=== PATIENT | male | born 1955 | race Caucasian/White ===

== ENCOUNTER 2017-09-22 14:30 | Observation (INO) | payer BC ==
[2017-09-22] MEDS ORDERED: LORazepam 2 MG/ML MDV IVPUSH ONE (15:51)
[2017-09-22] MEDS ORDERED: Sodium Chloride 0.9% 10 ML Syringe FLUSH PRN (15:51)
[2017-09-22] MEDS ORDERED: Ondansetron 4 MG/2 ML SDV IVPUSH ONE (15:51)
[2017-09-22] MEDS ORDERED: Sodium Chloride 0.9% 2,000 ML IV ONE (15:51)
--- NOTE | 2017-09-22 16:45 | EDM.PDOC ---
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 Patient states last night at approximately 2000 hrs. had a few bowel movements that were loose but with nothing abnormal. At approximately 2100 hrs he had copious amounts of watery diarrhea with no blood. He started vomiting thereafter and has persisted overnight. He's been unable to keep anything down. States he feels dehydrated. Has cramping to his lower legs. He denies recent sick contact although he has been at the [facility] for follow- up visit to discuss reversing his colostomy bag. Colon was removed in 2014 secondary to what the patient describes as a sick colon. He does have a history of C. difficile. States nothing recent has been diagnosed and has been on no antibiotics. He's had no fever, chest pain, shortness of breath, dysuria, or any additional complaints. He does complain of some mild dizziness with body position changes. No generalized body aches as well. - Related Data Allergies Allergy/AdvReac Type Severity Reaction Status Date / Time No Known Allergies Allergy Verified 09/22/17 14:48 Home Meds: Home Meds PHENobarbital [Phenobarbital] 97.2 mg PO BEDTIME 12/08/14 [History] Acetaminophen [Tylenol] 650 mg PO Q4H PRN 10/03/15 [History] Phenytoin 8 ml PO BID 12/12/15 [History] Entivyo. IV 09/22/17 [History] Past Medical History - Past Health History Medical/Surgical History: Denies Medical/Surgical History Gastrointestinal History: Reports: Bowel Obstruction, GERD, Hemorrhoids, Other ( See Below) Other Gastrointestinal History: ulcerative colitis, colectomy Musculoskeletal History: Reports: Arthritis Neurological History: Reports: Seizure Other Neuro History: last seizure in 1991 - Infectious Disease History Infectious Disease History: Reports: C-Difficile, Chicken Pox, Influenza, Measles, Mumps - Past Surgical History HEENT Surgical History: Reports: Other (See Below) GI Surgical History: Reports: Other (See Below) Social & Family History - Family History Family Medical History: Noncontributory Other Oncologic Family History: DM - mother. [place] - brother at age 39 - Tobacco Use Smoking Status *Q: Never Smoker Years of Tobacco use: 5 Used Tobacco, but Quit: Yes Month Tobacco Last Used: 1979 Second Hand Smoke Exposure: No - Caffeine Use Caffeine Use: Reports: Soda - Alcohol Use Days Per Week of Alcohol Use: 0 - Recreational Drug Use Recreational Drug Use: No Drug Use in Last 12 Months: No - Living Situation & Occupation Living situation: Reports: , with Spouse Occupation: Employed ED ROS GENERAL - Review of Systems Review Of Systems: ROS reveals no pertinent complaints other than HPI. ED EXAM, GI/ABD - Physical Exam Exam: See Below Exam Limited By: No Limitations General Appearance: Alert, WD/WN, Moderate Distress Ears: Hearing Grossly Normal Nose: Normal Inspection Throat/Mouth: Normal Voice, No Airway Compromise Head: Atraumatic, Normocephalic Neck: Normal Inspection, Supple, Non-Tender, Full Range of Motion Respiratory/Chest: No Respiratory Distress, Lungs Clear, Normal Breath Sounds Cardiovascular: Normal Peripheral Pulses, Regular Rate, Rhythm, No Murmur GI/Abdominal Exam: Soft, Non-Tender, No Organomegaly, No Distention, Abnormal Bowel Sounds (Hyperactive), Other (Colostomy bag present possibly one third full.) Back Exam: Normal Inspection Extremities: Normal Inspection, Non-Tender, No Pedal Edema Neurological: Alert, Oriented, CN II-XII Intact, Normal Cognition, No Motor/ Sensory Deficits Psychiatric: Normal Affect, Normal Mood Skin Exam: Warm, Dry, Intact, Normal Color, No Rash Course - Vital Signs Last Recorded V/S: Last Vital Signs Temp 97.0 F 09/22/17 14:48 Pulse 73 09/22/17 20:40 Resp 16 09/22/17 20:40 BP 102/69 09/22/17 20:40 Pulse Ox 98 09/22/17 20:40 - Orders/Labs/Meds Orders: Active Orders 24 hr Category Date Time Status C DIFFICILE BY PCR W/NAP1 [MOLEC] Stat Lab 09/22/17 15:51 Ordered Sodium Chloride 0.9% [Saline Flush] Med 09/22/17 15:51 Active 10 ml FLUSH ASDIRECTED PRN Peripheral IV Insertion Adult [OM.PC] Stat Oth 09/22/17 15:50 Ordered Medication Orders Acetaminophen (Tylenol) 650 mg PO Q6H PRN PRN Reason: Pain Phenobarbital (Phenobarbital) 97.2 mg PO BEDTIME KAVYA Phenytoin Sodium (Dilantin-125 Susp) 200 mg PO BID@0600,1800 KAVYA Saccharomyces Boulardii (Florastor) 250 mg PO DAILY KAVYA Sodium Chloride (Saline Flush) 10 ml FLUSH ASDIRECTED PRN PRN Reason: Keep Vein Open Last Admin: 09/22/17 16:06 Dose: 10 ml Temazepam (Restoril) 15 mg PO BEDTIME PRN PRN Reason: Insomnia Labs: Laboratory Tests 09/22/17 09/22/17 Range/Units 14:45 14:45 WBC 17.96 H (4.23-9.07) K/mm3 RBC 5.28 (4.63-6.08) M/mm3 Hgb 15.4 (13.7-17.5) gm/L Hct 46.2 (40.1-51.0) % MCV 87.5 (79.0-92.2) fl MCH 29.2 (25.7-32.2) pg MCHC 33.3 (32.2-35.5) g/dl RDW Std Deviation 43.0 (35.1-43.9) fL Plt Count 337 (163-337) K/mm3 MPV 9.4 (9.4-12.3) fl Neut % (Auto) 96.0 H (34.0-67.9) % Lymph % (Auto) 0.8 L (21.8-53.1) % [place] % (Auto) 2.7 L (5.3-12.2) % Eos % (Auto) 0.1 L (0.8-7.0) Baso % (Auto) 0.2 (0.1-1.2) % Neut # (Auto) 17.23 H (1.78-5.38) K/mm3 Lymph # (Auto) 0.15 L (1.32-3.57) K/mm3 [place] # (Auto) 0.49 (0.30-0.82) K/mm3 Eos # (Auto) 0.02 L (0.04-0.54) K/mm3 Baso # (Auto) 0.03 (0.01-0.08) K/mm3 Manual Slide Review Abnormal smear Sodium 138 (136-145) mEq/L Potassium 4.8 (3.5-5.1) mEq/L Chloride 102 (98-107) mEq/L Carbon Dioxide 24 (21-32) mEq/L Anion Gap 16.8 H (5-15) BUN 32 H (7-18) mg/dL Creatinine 2.5 H (0.7-1.3) mg/dL Est Cr Clr Drug Dosing 32.26 mL/min Estimated GFR (MDRD) 26 (>60) mL/min BUN/Creatinine Ratio 12.8 L (14-18) Glucose 148 H (74-106) mg/dL Calcium 10.0 (8.5-10.1) mg/dL Total Bilirubin 0.5 (0.2-1.0) mg/dL AST 25 (15-37) U/L ALT 44 (16-63) U/L Alkaline Phosphatase 143 H (46-116) U/L C-Reactive Protein 5.8 H* (<1.0) mg/dL Total Protein 10.4 H (6.4-8.2) g/dl Albumin 5.3 H (3.4-5.0) g/dl Globulin 5.1 gm/dL Albumin/Globulin Ratio 1.0 (1-2) Meds: Medications Generic Name Dose Route Start Last Admin Trade Name Freq PRN Reason Stop Dose Admin Acetaminophen 650 mg 09/22/17 20:08 Tylenol PO Q6H PRN Pain Phenobarbital 97.2 mg 09/22/17 21:00 Phenobarbital PO BEDTIME KAVYA Phenytoin Sodium 200 mg 09/22/17 21:00 Dilantin-125 Susp PO BID@0600,1800 KAVYA Saccharomyces Boulardii 250 mg 09/23/17 09:00 Florastor PO DAILY KAVYA Sodium Chloride 10 ml 09/22/17 15:51 09/22/17 16:06 Saline Flush FLUSH 10 ml ASDIRECTED PRN Administration Keep Vein Open Temazepam 15 mg 09/22/17 20:07 Restoril PO BEDTIME PRN Insomnia Discontinued Medications Generic Name Dose Route Start Last Admin Trade Name Freq PRN Reason Stop Dose Admin Sodium Chloride 2,000 mls @ 999 mls/hr 09/22/17 15:51 09/22/17 16:04 Normal Saline IV 09/22/17 17:51 999 mls/hr ONETIME ONE Administration Lorazepam 0.5 mg 09/22/17 15:51 09/22/17 16:07 Ativan IVPUSH 09/22/17 15:52 0.5 mg ONETIME ONE Administration Ondansetron HCl 4 mg 09/22/17 15:51 09/22/17 16:05 Zofran IVPUSH 09/22/17 15:52 4 mg ONETIME ONE Administration - Re-Assessments/Exams Free Text/Narrative Re-Assessment/Exam: IV established with normal saline 2000 L per hour, Zofran 4 mg IVP, and Ativan 0.5 mg IVP. Initial labs and studies include CBC, chem 14, CRP, stool wbc's and also C. difficile. Labs reviewed: Sodium 138, potassium 4.8, AG 16.8, UA and 32, creatinine 2.5, glucose 148, alk phosphatase 143, CRP is 5.8. Patient's baseline creatinine is around 1.0. Patient has suffered an acute kidney injury secondary to prerenal azotemia. IV fluids are running in at 999 mls per hour total 2000 mls. Labs reviewed: White blood cell count 17.6, hemoglobin 15.4, neutrophil percent is 96, neutrophil number is 17.23, lymphocyte percentage is 0.8, lymphocyte number is 0.15, sodium 138, potassium 4.8, AG 16.8, albumin 32, creatinine 2.5, glucose 148, alk phosphatase 143, and CRP 5.8. Stool studies: No wbc's seen. C. difficile is pending. Admission delayed due to attending to another patient. Discussed patient with Dr. Tinsley. She will see the patient in the E.D. She has agreed to admit the patient. Departure - Departure Time of Disposition: 20:15 Disposition: Admitted As Inpatient 68 Condition: Fair Clinical Impression: Acute renal insufficiency N&V (nausea and vomiting) Qualifiers: Vomiting type: unspecified Vomiting Intractability: non-intractable Qualified Code(s): R11.2 - Nausea with vomiting, unspecified Diarrhea Qualifiers: Diarrhea type: presumed infectious Qualified Code(s): A09 - Infectious gastroenteritis and colitis, unspecified - Discharge Information - My Orders Last 24 Hours: My Active Orders 09/22/17 15:50 Peripheral IV Insertion Adult [OM.PC] Stat 09/22/17 15:51 C DIFFICILE BY PCR W/NAP1 [MOLEC] Stat Sodium Chloride 0.9% [Saline Flush] 10 ml FLUSH ASDIRECTED PRN - Assessment/Plan Last 24 Hours: My Active Orders 09/22/17 15:50 Peripheral IV Insertion Adult [OM.PC] Stat 09/22/17 15:51 C DIFFICILE BY PCR W/NAP1 [MOLEC] Stat Sodium Chloride 0.9% [Saline Flush] 10 ml FLUSH ASDIRECTED PRN
--- NOTE | 2017-09-22 19:57 | PCM.HP ---
H&P History of Present Illness - General Date of Service: 09/22/17 Source of Information: Patient, Family, Provider History Limitations: Reports: No Limitations - History of Present Illness Initial Comments - Free Text/Narative: 62 year old male with history of UC with total colectomy presents with a complaint of abdominal pain associated with frequent bowel movements. The abdominal pain occurred suddenly, and was associated with nausea and vomiting. The patient has been unable to keep any food down. He has experienced generalized weakness; denies blood in his colostomy bag content. The episodes abruptly began over the last 12 hours. There has been no recent travel or change in food. His recently had the stomach flu. He has had no fever or chills. Onset of Symptoms: Reports: Sudden Duration of Symptoms: Reports: Hour(s):, Getting Worse Location: Reports: Abdomen, Generalized Severity: Moderate Improves with: Reports: Medication Worsens with: Reports: None Associated Symptoms: Reports: Loss of Appetite, Malaise, Nausea/Vomiting, Weakness - Related Data Allergies/Adverse Reactions: Allergies Allergy/AdvReac Type Severity Reaction Status Date / Time No Known Allergies Allergy Verified 09/22/17 14:48 Home Medications: Home Meds PHENobarbital [Phenobarbital] 97.2 mg PO BEDTIME 12/08/14 [History] Acetaminophen [Tylenol] 650 mg PO Q4H PRN 10/03/15 [History] Phenytoin 8 ml PO BID 12/12/15 [History] Entivyo. IV 09/22/17 [History] Past Medical History - Past Health History Medical/Surgical History: Denies Medical/Surgical History Gastrointestinal History: Reports: Bowel Obstruction, GERD, Hemorrhoids, Other ( See Below) Other Gastrointestinal History: ulcerative colitis, colectomy Musculoskeletal History: Reports: Arthritis Neurological History: Reports: Seizure Other Neuro History: last seizure in 1991 - Infectious Disease History Infectious Disease History: Reports: C-Difficile, Chicken Pox, Influenza, Measles, Mumps - Past Surgical History HEENT Surgical History: Reports: Other (See Below) GI Surgical History: Reports: Other (See Below) Social & Family History - Family History Family Medical History: Noncontributory Other Oncologic Family History: DM - mother. [place] - brother at age 39 - Tobacco Use Smoking Status *Q: Never Smoker Years of Tobacco use: 5 Used Tobacco, but Quit: Yes Month Tobacco Last Used: 1979 Second Hand Smoke Exposure: No - Caffeine Use Caffeine Use: Reports: Soda - Alcohol Use Days Per Week of Alcohol Use: 0 - Recreational Drug Use Recreational Drug Use: No Drug Use in Last 12 Months: No - Living Situation & Occupation Living situation: Reports: , with Spouse Occupation: Employed H&P Review of Systems - Review of Systems: Review Of Systems: See Below General: Reports: Malaise, Weakness, Fatigue HEENT: Reports: No Symptoms Pulmonary: Reports: No Symptoms Cardiovascular: Reports: No Symptoms Gastrointestinal: Reports: Abdominal Pain, Decreased Appetite, Nausea, Vomiting Genitourinary: Reports: No Symptoms Musculoskeletal: Reports: No Symptoms Skin: Reports: No Symptoms Psychiatric: Reports: No Symptoms Neurological: Reports: No Symptoms Hematologic/Lymphatic: Reports: No Symptoms Immunologic: Reports: No Symptoms Exam - Exam Exam: See Below - Vital Signs Vital Signs: Last Vital Signs Temp 36.1 C 09/22/17 14:48 Pulse 86 09/22/17 14:48 Resp BP 105/74 09/22/17 14:48 Pulse Ox 96 09/22/17 14:48 Weight: 72.575 kg - Exam General: Alert, Oriented HEENT: Conjunctiva Clear, Nares Patent, Normal Nasal Septum, Pupils Equal, Pupils Reactive, PERRLA Neck: Trachea Midline Lungs: Clear to Auscultation, Normal Respiratory Effort Cardiovascular: Regular Rate, Regular Rhythm GI/Abdominal Exam: Normal Bowel Sounds, Soft, Non-Tender, No Organomegaly, Distended (Male) Exam: Deferred Rectal (Males) Exam: Deferred Extremities: Normal Inspection, Normal Range of Motion, No Pedal Edema, Slow Capillary Refill Skin: Warm Neurological: Cranial Nerves Intact Neuro Extensive - Mental Status: Alert, Oriented x3, Normal Mood/Affect, Normal Cognition Neuro Extensive - Motor, Sensory, Reflexes: CN II-XII Intact Psychiatric: Alert, Normal Affect, Normal Mood - Patient Data Result Diagrams: 09/23/17 07:02 09/23/17 07:02 *Q Meaningful Use (ADM) - VTE *Q VTE Criteria *Q: - Stroke *Q Stroke Criteria *Q: - AMI *Q AMI Criteria *Q: - Problem List (1) Acute renal insufficiency SNOMED Code(s): 558485143 ICD Code: N28.9 - DISORDER OF KIDNEY AND URETER, UNSPECIFIED Status: Acute Current Visit: Yes (2) Diarrhea SNOMED Code(s): 81016372 ICD Code: R19.7 - DIARRHEA, UNSPECIFIED Status: Acute Current Visit: Yes Qualifiers: Diarrhea type: presumed infectious Qualified Code(s): A09 - Infectious gastroenteritis and colitis, unspecified (3) N&V (nausea and vomiting) SNOMED Code(s): 03923288 ICD Code: R11.2 - NAUSEA WITH VOMITING, UNSPECIFIED Status: Acute Current Visit: Yes Qualifiers: Vomiting type: unspecified Vomiting Intractability: non-intractable Qualified Code(s): R11.2 - Nausea with vomiting, unspecified (4) Anemia SNOMED Code(s): 674339373 ICD Code: D64.9 - ANEMIA, UNSPECIFIED Status: Acute Current Visit: No (5) Crohn's disease SNOMED Code(s): 21750153 ICD Code: K50.90 - CROHN'S DISEASE, UNSPECIFIED, WITHOUT COMPLICATIONS Status: Acute Current Visit: No (6) History of colectomy SNOMED Code(s): 719090558 ICD Code: Z90.49 - ACQUIRED ABSENCE OF OTHER SPECIFIED PARTS OF DIGESTIVE TRACT Status: Acute Current Visit: No (7) Seizure disorder SNOMED Code(s): 244101223 ICD Code: G40.909 - EPILEPSY, UNSP, NOT INTRACTABLE, WITHOUT STATUS EPILEPTICUS Status: Acute Current Visit: No Problem List Initiated/Reviewed/Updated: Yes Orders Last 24hrs: Medication Orders Sodium Chloride (Saline Flush) 10 ml FLUSH ASDIRECTED PRN PRN Reason: Keep Vein Open Last Admin: 09/22/17 16:06 Dose: 10 ml Assessment/Plan Comment:: Impression: ARF Dehydration Diarrhea with history of UC/total colectomy SZ disorder Chronic Hx of SBO Hx of C diff Hx of GERD Plain: IVF Replace electrolytes Stool studies Home meds Obs with tele Daily labs Disposition home 24-48 hours DVT/GI prophylaxis
[2017-09-22] MEDS ORDERED: Temazepam 15 MG Cap PO PRN (20:07)
[2017-09-22] MEDS ORDERED: Acetaminophen Soln 650 MG/20.3 ML UD Cup PO PRN (20:08)
[2017-09-22] MEDS ORDERED: Phenytoin 25 MG/1 ML Susp ML 237 ML Bottle PO SCH (21:00)
[2017-09-22] MEDS ORDERED: PHENobarbital 32.4 MG Tab PO SCH (21:00)
[2017-09-22] MEDS ORDERED: Sodium Chloride 0.9% 1,000 ML IV SCH (23:00)
[2017-09-22] MEDS ORDERED: PHENOBARBITAL 97.2 MG PO SCH (23:15)
[2017-09-22] MEDS: PHENYTOIN PO SCH (23:18)
[2017-09-23] MEDS: PHENYTOIN PO SCH (06:21)
[2017-09-23] MEDS ORDERED: Saccharomyces Boulardii (Probiotic) 250 MG Cap PO SCH (09:00)
[2017-09-23 10:51] VITALS: BP 102/58
--- NOTE | 2017-09-23 11:12 | PCM.DCSUM1 ---
Discharge Summary - Hospital Course Free Text/Narrative:: 62 year old male with abrupt onset of abdominal pain with diarrhea was treated with aggressive IV fluid resuscitation and electrolyte replacements. Stool studies available at DC were unremarkable. The over night stay was unremarkable , he will be DCd home on his home meds and keep his PCP follow up. Primary Dx ARF Dehydration Diarrhea Electrolyte abnormalities History of Ulcerative Colitis/S/P Total Colectomy Diet Heart healthy Activity As tolerated Follow up PCP 1-2 weeks Meds Home meds Disposition Home - Discharge Data Discharge Date: 09/23/17 Discharge Disposition: Home, Self-Care 01 Condition: Good - Patient Instructions Diet: Heart Healthy Diet Activity: As Tolerated Driving: February Drive Today Showering/Bathing: February Shower Notify Provider of: Fever, Nausea and/or Vomiting - Discharge Plan Home Medications: Home Meds PHENobarbital [Phenobarbital] 97.2 mg PO BEDTIME 12/08/14 [History] Acetaminophen [Tylenol] 650 mg PO Q4H PRN 10/03/15 [History] Phenytoin 8 ml PO BID 12/12/15 [History] Entivyo. IV 09/22/17 [History] Patient Handouts: Diarrhea, Adult, Colostomy, Adult, Dehydration, Adult Referrals: Iraj Young MD [Primary Care Provider] - - Discharge Summary/Plan Comment DC Time >30 min.: No - General Info Date of Service: 09/22/17 Functional Status: Reports: Tolerating Diet, Ambulating, Urinating - Review of Systems General: Reports: No Symptoms HEENT: Reports: No Symptoms Pulmonary: Reports: No Symptoms Cardiovascular: Reports: No Symptoms Gastrointestinal: Reports: No Symptoms Genitourinary: Reports: No Symptoms Musculoskeletal: Reports: No Symptoms Skin: Reports: No Symptoms Neurological: Reports: No Symptoms Psychiatric: Reports: No Symptoms - Patient Data Vitals - Most Recent: Last Vital Signs Temp 36.7 C 09/23/17 08:34 Pulse 69 09/23/17 08:34 Resp 16 09/23/17 08:34 BP 102/58 L 09/23/17 08:34 Pulse Ox 97 09/23/17 08:34 Weight - Most Recent: 72.303 kg I&O - Last 24 hours: Intake & Output 09/22/17 09/23/17 09/23/17 22:59 06:59 14:59 Intake Total 350 100 Balance 350 100 Lab Results - Last 24 hrs: Laboratory Results - last 24 hr 09/23/17 09/23/17 09/23/17 Range/Units 06:30 06:30 07:02 WBC 7.65 (4.23-9.07) K/mm3 RBC 4.23 L (4.63-6.08) M/mm3 Hgb 12.5 L (13.7-17.5) gm/L Hct 37.9 L (40.1-51.0) % MCV 89.6 (79.0-92.2) fl MCH 29.6 (25.7-32.2) pg MCHC 33.0 (32.2-35.5) g/dl RDW Std Deviation 42.5 (35.1-43.9) fL Plt Count 250 (163-337) K/mm3 MPV 8.8 L (9.4-12.3) fl Neut % (Auto) 77.8 H (34.0-67.9) % Lymph % (Auto) 9.3 L (21.8-53.1) % [place] % (Auto) 9.4 (5.3-12.2) % Eos % (Auto) 3.3 (0.8-7.0) Baso % (Auto) 0.1 (0.1-1.2) % Neut # (Auto) 5.95 H (1.78-5.38) K/mm3 Lymph # (Auto) 0.71 L (1.32-3.57) K/mm3 [place] # (Auto) 0.72 (0.30-0.82) K/mm3 Eos # (Auto) 0.25 (0.04-0.54) K/mm3 Baso # (Auto) 0.01 (0.01-0.08) K/mm3 Manual Slide Review Abnormal smear Sodium (136-145) mEq/L Potassium (3.5-5.1) mEq/L Chloride (98-107) mEq/L Carbon Dioxide (21-32) mEq/L Anion Gap (5-15) BUN (7-18) mg/dL Creatinine (0.7-1.3) mg/dL Est Cr Clr Drug Dosing mL/min Estimated GFR (MDRD) (>60) mL/min BUN/Creatinine Ratio (14-18) Glucose (74-106) mg/dL Calcium (8.5-10.1) mg/dL Magnesium (1.8-2.4) mg/dl C-Reactive Protein (<1.0) mg/dL Lipase (73-393) U/L Urine Color Yellow (Yellow) Urine Appearance Clear (Clear) Urine pH 6.0 (5.0-8.0) Ur Specific [place] > or = 1.030 (1.005-1.030) Urine Protein 2+ H (Negative) Urine Glucose (UA) Negative (Negative) Urine Ketones Negative (Negative) Urine Occult Blood Negative (Negative) Urine Nitrite Negative (Negative) Urine Bilirubin Negative (Negative) Urine Urobilinogen 0.2 (0.2-1.0) Ur Leukocyte Esterase Negative (Negative) Urine RBC Not seen (0-5) /hpf Urine WBC 5-10 H (0-5) /hpf Ur Epithelial Cells 10-20 H (0-5) /hpf Urine Bacteria Rare (FEW) /hpf Hyaline Casts 10-20 H (0-5) /lpf Urine Mucus Few (FEW) /hpf C.difficile 027-NAP1-B1 Presumptive negative C. difficile Tox (PCR) Negative 09/23/17 Range/Units 07:02 WBC (4.23-9.07) K/mm3 RBC (4.63-6.08) M/mm3 Hgb (13.7-17.5) gm/L Hct (40.1-51.0) % MCV (79.0-92.2) fl MCH (25.7-32.2) pg MCHC (32.2-35.5) g/dl RDW Std Deviation (35.1-43.9) fL Plt Count (163-337) K/mm3 MPV (9.4-12.3) fl Neut % (Auto) (34.0-67.9) % Lymph % (Auto) (21.8-53.1) % [place] % (Auto) (5.3-12.2) % Eos % (Auto) (0.8-7.0) Baso % (Auto) (0.1-1.2) % Neut # (Auto) (1.78-5.38) K/mm3 Lymph # (Auto) (1.32-3.57) K/mm3 [place] # (Auto) (0.30-0.82) K/mm3 Eos # (Auto) (0.04-0.54) K/mm3 Baso # (Auto) (0.01-0.08) K/mm3 Manual Slide Review Sodium 139 (136-145) mEq/L Potassium 4.6 (3.5-5.1) mEq/L Chloride 106 (98-107) mEq/L Carbon Dioxide 24 (21-32) mEq/L Anion Gap 13.6 (5-15) BUN 31 H (7-18) mg/dL Creatinine 1.5 H (0.7-1.3) mg/dL Est Cr Clr Drug Dosing 53.56 mL/min Estimated GFR (MDRD) 48 (>60) mL/min BUN/Creatinine Ratio 20.7 H (14-18) Glucose 98 (74-106) mg/dL Calcium 8.4 L (8.5-10.1) mg/dL Magnesium 1.9 (1.8-2.4) mg/dl C-Reactive Protein 7.3 H* (<1.0) mg/dL Lipase 85 (73-393) U/L Urine Color (Yellow) Urine Appearance (Clear) Urine pH (5.0-8.0) Ur Specific [place] (1.005-1.030) Urine Protein (Negative) Urine Glucose (UA) (Negative) Urine Ketones (Negative) Urine Occult Blood (Negative) Urine Nitrite (Negative) Urine Bilirubin (Negative) Urine Urobilinogen (0.2-1.0) Ur Leukocyte Esterase (Negative) Urine RBC (0-5) /hpf Urine WBC (0-5) /hpf Ur Epithelial Cells (0-5) /hpf Urine Bacteria (FEW) /hpf Hyaline Casts (0-5) /lpf Urine Mucus (FEW) /hpf C.difficile 027-NAP1-B1 C. difficile Tox (PCR) YANNICK Results - Last 24 hrs: Microbiology 09/23/17 06:30 Rotavirus Antigen - Final Stool / Feces - Stool, Formed NEGATIVE ROTAVIRUS ANTIGEN 09/22/17 21:51 Influenza Type A Antigen Screen - Final Nasal, Right NEGATIVE INFLUENZA A VIRUS AG Influenza Type B Antigen Screen - Final NEGATIVE INFLUENZA B VIRUS AG Med Orders - Current: Current Medications Acetaminophen (Tylenol) 650 mg PO Q6H PRN PRN Reason: Pain Sodium Chloride (Normal Saline) 1,000 mls @ 100 mls/hr IV ASDIRECTED [facility] Last Admin: 09/22/17 23:17 Dose: 100 mls/hr Phenobarbital 97.2mg (Tab Own Med) 0 each PO BEDTIME [facility] Last Admin: 09/22/17 23:18 Dose: 1 each Phenytoin Sodium (Dilantin-125 Susp) 200 mg PO BID@0600,1800 [facility] Last Admin: 09/23/17 06:21 Dose: 200 mg Saccharomyces Boulardii (Florastor) 250 mg PO DAILY [facility] Sodium Chloride (Saline Flush) 10 ml FLUSH ASDIRECTED PRN PRN Reason: Keep Vein Open Last Admin: 09/22/17 16:06 Dose: 10 ml Temazepam (Restoril) 15 mg PO BEDTIME PRN PRN Reason: Insomnia Discontinued Medications Sodium Chloride (Normal Saline) 2,000 mls @ 999 mls/hr IV ONETIME ONE Stop: 09/22/17 17:51 Last Admin: 09/22/17 16:04 Dose: 999 mls/hr Lorazepam (Ativan) 0.5 mg IVPUSH ONETIME ONE Stop: 09/22/17 15:52 Last Admin: 09/22/17 16:07 Dose: 0.5 mg Ondansetron HCl (Zofran) 4 mg IVPUSH ONETIME ONE Stop: 09/22/17 15:52 Last Admin: 09/22/17 16:05 Dose: 4 mg Phenobarbital (Phenobarbital) 97.2 mg PO BEDTIME [facility] Phenytoin Sodium (Dilantin-125 Susp) 200 mg PO BID@0600,1800 [facility] - Exam Quality Assessment: Reports: DVT Prophylaxis General: Reports: Alert, Oriented, Cooperative, No Acute Distress HEENT: Reports: Pupils Equal, Pupils Reactive, EOMI Neck: Reports: Supple, Trachea Midline, No JVD Lungs: Reports: Clear to Auscultation, Normal Respiratory Effort Cardiovascular: Reports: Regular Rate, Regular Rhythm GI/Abdominal Exam: Normal Bowel Sounds, Soft, Non-Tender, No Organomegaly, No Distention (Male) Exam: Deferred Rectal (Males) Exam: Deferred Back Exam: Reports: Normal Inspection Extremities: Normal Inspection, Normal Range of Motion, Non-Tender, No Pedal Edema, Normal Capillary Refill Skin: Reports: Warm Neurological: Reports: No New Focal Deficit, Normal Gait, Normal Speech Psy/Mental Status: Reports: Alert, Normal Affect, Normal Mood *Q Meaningful Use (DIS) - VTE *Q VTE Criteria *Q: - Stroke *Q Stroke Criteria *Q: - AMI *Q AMI Criteria *Q:
== END 2017-09-23 12:07 | disposition home or self-care (01) ==
LOC: JD.ED 14:30 → JD.MS 19:30
PROVIDERS: ADMIT Internal Medicine Cardiovascular Disease; ATTEND Internal Medicine Cardiovascular Disease
DX: N17.9 Acute kidney failure, unspecified (principal); E86.0 Dehydration; R19.7 Diarrhea, unspecified; K21.9 Gastro-esophageal reflux disease without esophagitis; M19.90 Unspecified osteoarthritis, unspecified site; R56.9 Unspecified convulsions; Z87.19 Personal history of other diseases of the digestive system; Z86.19 Personal history of other infectious and parasitic diseases; Z83.3 Family history of diabetes mellitus; Z82.49 Family history of ischemic heart disease and other diseases of the circulatory system; Z79.899 Other long term (current) drug therapy; Z93.3 Colostomy status; Z90.49 Acquired absence of other specified parts of digestive tract
CPT/HCPCS: 36415; 80048; 80053; 81001; 83690; 83735; 85025; 86140; 87425; 87493; 87804; 89055; 96361; 96374; 96375; 99285; G0378; J2060; J2405; J7040; J7050; 99284

== ENCOUNTER 2017-12-26 09:59 | Emergency (ER) | payer BC ==
[2017-12-26 10:08] VITALS: BP 132/77
--- NOTE | 2017-12-26 10:24 | EDM.PDOC ---
ED HPI GENERAL MEDICAL PROBLEM - General Chief Complaint: Chest Pain Stated Complaint: CHEST PAIN Time Seen by Provider: 12/26/17 10:17 Source of Information: Reports: Patient History Limitations: Reports: No Limitations - History of Present Illness INITIAL COMMENTS - FREE TEXT/NARRATIVE: 62-year-old male presents to the ED for evaluation primarily of feeling dizzy lightheaded and just not himself. He reports that he got up early this morning around 0600 hrs. and had to clear his driveway with the aid of a snowblower. He states this lasted about a half an hour. He then quickly jumped into the house to have a shower and something to eat before he had to work at [address] to work he appreciated central chest discomfort or heaviness. This persisted while he was at work and associated feeling of being lightheaded dizziness. He continues to have very low level heaviness in his chest which he grades as a 1 or 2 out of 10. He states he did take 2 full Jesse aspirin 325 mg strength at work at about 0730 hrs. Has no known coronary disease. Used to smoke cigarettes but quit many years ago. Has no problems with his blood pressure. Onset: Today Onset Date: 12/26/17 Onset Time: 06:50 Duration: Hour(s): Location: Reports: Chest Quality: Reports: Ache (Central chest with no radiation of the discomfort to his back neck arms or shoulders.), Pressure Severity: Moderate (States was about a 5 out of 10 for a while now down to 1 out of 10) Improves with: Reports: None Worsens with: Reports: None Context: Reports: Other (Discomfort came on while he was using a snowblower to move snow this morning.). Denies: Activity, Exercise, Lifting, Sick Contact Associated Symptoms: Reports: Chest Pain, Other. Denies: Confusion, Cough, cough w sputum, Fever/Chills, Headaches, Loss of Appetite, Malaise, Rash, Seizure, Shortness of Breath, Syncope Treatments [employer] REPRESENTATIVE: Reports: Other (see below) (07/12/25 milligram aspirins before coming to the ED at.) Middle Chest Pain Score (Numeric/FACES): 2 - Related Data Allergies Allergy/AdvReac Type Severity Reaction Status Date / Time No Known Allergies Allergy Verified 12/26/17 10:08 Home Meds: Home Meds PHENobarbital [Phenobarbital] 97.2 mg PO BEDTIME 12/08/14 [History] Acetaminophen [Tylenol] 650 mg PO Q4H PRN 10/03/15 [History] Phenytoin 8 ml PO BID 12/12/15 [History] Meclizine [Antivert] 12.5 mg PO TID #15 tab 12/26/17 [Rx] Past Medical History - Past Health History Medical/Surgical History: Denies Medical/Surgical History HEENT History: Reports: Cataract, Impaired Vision Respiratory History: Reports: None Gastrointestinal History: Reports: Bowel Obstruction, GERD, Hemorrhoids, Other ( See Below) Other Gastrointestinal History: ulcerative colitis, colectomy Genitourinary History: Reports: None Musculoskeletal History: Reports: Arthritis Neurological History: Reports: Seizure Other Neuro History: last seizure in 1991 Endocrine/Metabolic History: Reports: None Hematologic History: Reports: Blood Transfusion(s) Oncologic (Cancer) History: Reports: None Dermatologic History: Reports: None - Infectious Disease History Infectious Disease History: Reports: C-Difficile, Chicken Pox, Influenza, Measles, Mumps - Past Surgical History HEENT Surgical History: Reports: Other (See Below) GI Surgical History: Reports: Other (See Below) Other GI Surgeries/Procedures: Patient due to inflammatory bowel disease unclear whether colitis versus Crohn disease did have an abdominal perineal resection in 2014. He this was complicated by development of an abscess in his pelvis which took well over a year and a half to heal. 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 Currently deciding on how to best attack the fistula before deciding whether to reverse his ileostomy and formation of a J-pouch. Dermatological Surgical History: Reports: Skin Biopsy Social & Family History - Family History Family Medical History: Noncontributory Other Oncologic Family History: DM - mother. OK - brother at age 39 - Tobacco Use Smoking Status *Q: Never Smoker Years of Tobacco use: 5 Used Tobacco, but Quit: Yes Month/Year Tobacco Last Used: 1979 Second Hand Smoke Exposure: No - Caffeine Use Caffeine Use: Reports: None - Alcohol Use Days Per Week of Alcohol Use: 0 - Recreational Drug Use Recreational Drug Use: No Drug Use in Last 12 Months: No - Living Situation & Occupation Living situation: Reports: , with Spouse Occupation: Employed ED ROS GENERAL - Review of Systems Review Of Systems: See Below Constitutional: Denies: Fever, Chills, Malaise, Weakness, Fatigue, Diaphoresis, Decreased Appetite, Weight Loss HEENT: Reports: Vertigo Respiratory: Reports: No Symptoms (Mild sensation of vertigo i.e. lightheaded dizziness with movement.) Cardiovascular: Reports: Chest Pain Endocrine: Reports: No Symptoms (Some mild central heavy chest pressure.) GI/Abdominal: Reports: No Symptoms : Reports: No Symptoms Musculoskeletal: Reports: No Symptoms Skin: Reports: No Symptoms Neurological: Reports: Dizziness, Difficulty Walking (He appreciates that he slightly ataxic particularly when he pivots to turn.). Denies: Headache, Numbness, Paresthesia, Pre-Existing Deficit, Seizure, Syncope, Tingling, Tremors , Trouble Speaking, Weakness Psychiatric: Reports: No Symptoms Hematologic/Lymphatic: Reports: No Symptoms ED EXAM, GENERAL - Physical Exam Exam: See Below Exam Limited By: No Limitations General Appearance: Alert, WD/WN, No Apparent Distress Eye Exam: Bilateral Eye: Normal Inspection, Nystagmus (Very slight nystagmus on right lateral gaze suggesting a possible problem with the left labyrinth.), PERRL Ears: Normal TMs (No ear wax pushing on the eardrums.) Throat/Mouth: Normal Inspection, Normal Lips, Normal Teeth, Normal Oropharynx, Other Head: Atraumatic, Normocephalic Neck: Normal Inspection, Non-Tender, Full Range of Motion. No: Lymphadenopathy (L), Lymphadenopathy (R) Respiratory/Chest: No Respiratory Distress, Lungs Clear, Normal Breath Sounds, No Accessory Muscle Use Cardiovascular: No Edema, No Gallop, No JVD, No Murmur, No Rub, Irregularly Irregular (Frequent PACs.) Peripheral Pulses: 2+: Carotid (L), Carotid (R), Posterior Tibial (L), Posterior Tibial (R), Dorsalis Pedis (L), Dorsalis Pedis (R) GI/Abdominal: Normal Bowel Sounds, Soft, Non-Tender, No Organomegaly, Other ( Ileostomy in the midline of his lower abdomen. Of note the ileostomy initially was in his right lower quadrant and due to bowel obstruction and had to be moved.) Back Exam: Normal Inspection, Full Range of Motion. No: CVA Tenderness (L), CVA Tenderness (R) Extremities: Normal Inspection, Normal Range of Motion, Non-Tender, No Pedal Edema Neurological: Oriented, CN II-XII Intact, Normal Cognition Psychiatric: Normal Affect, Normal Mood Skin Exam: Warm, Dry, Intact, Normal Color, No Rash EKG INTERPRETATION EKG Date: 12/26/17 Time: 10:10 Rhythm: NSR Rate (Beats/Min): 78 Bomoseen: LAD-Left Bomoseen Deviation (Mild left axis deviation at -17) P-Wave: Present (There is a first-degree AV block.) QRS: Other (Has an incomplete right bundle branch block pattern. There is left ventricular hypertrophy pattern .) ST-T: Other (There is a diffuse early repolarization pattern particular noted in the precordial leads but also noted in lead 2. There are peaked symmetrical T waves V4 to V6.) QT: Normal EKG Interpretation Comments: Abnormal ECG without any signs of ischemia. Course - Vital Signs Last Recorded V/S: Last Vital Signs Temp 36.1 C 12/26/17 10:05 Pulse 84 12/26/17 10:05 Resp 18 12/26/17 10:05 BP 132/77 12/26/17 10:05 Pulse Ox 97 12/26/17 10:05 Orthostatic Blood Pressure [ 124/74 Standing] Orthostatic Blood Pressure [ 120/74 Sitting] Orthostatic Blood Pressure [ 120/69 Supine] - Orders/Labs/Meds Orders: Active Orders 24 hr Category Date Time Status EKG Documentation Completion [RC] STAT Care 12/26/17 10:25 Active Orthostatic Vital Signs [RC] ASDIRECTED Care 12/26/17 10:25 Active PRO B-TYPE NATRIUR PEPT,BNPPRO [CHEM] Stat Lab 12/26/17 10:20 Received Labs: Laboratory Tests 12/26/17 12/26/17 12/26/17 Range/Units 10:20 10:20 10:20 WBC 6.11 (4.23-9.07) K/mm3 RBC 4.15 L (4.63-6.08) M/mm3 Hgb 12.1 L (13.7-17.5) gm/L Hct 36.1 L (40.1-51.0) % MCV 87.0 (79.0-92.2) fl MCH 29.2 (25.7-32.2) pg MCHC 33.5 (32.2-35.5) g/dl RDW Std Deviation 39.1 (35.1-43.9) fL Plt Count 300 (163-337) K/mm3 MPV 8.7 L (9.4-12.3) fl Neutrophils % (Manual) 78 H (40-60) % Band Neutrophils % 0 (0-10) % Lymphocytes % (Manual) 13 L (20-40) % Atypical Lymphs % 0 % Monocytes % (Manual) 6 (2-10) % Eosinophils % (Manual) 2 (0.8-7.0) % Basophils % (Manual) 1 (0.2-1.2) Platelet Estimate Adequate Anisocytosis 1+ slight Microcytosis 1+ slight RBC Morph Comment Abmormal PT 11.4 (8.0-13.0) SECONDS INR 1.06 APTT 26 (22-36) SECONDS Sodium 138 (136-145) mEq/L Potassium 4.2 (3.5-5.1) mEq/L Chloride 103 (98-107) mEq/L Carbon Dioxide 28 (21-32) mEq/L Anion Gap 11.2 (5-15) BUN 24 H (7-18) mg/dL Creatinine 1.2 (0.7-1.3) mg/dL Est Cr Clr Drug Dosing 71.40 mL/min Estimated GFR (MDRD) > 60 (>60) mL/min BUN/Creatinine Ratio 20.0 H (14-18) Glucose 94 (74-106) mg/dL Calcium 8.7 (8.5-10.1) mg/dL Magnesium 1.7 L (1.8-2.4) mg/dl Total Bilirubin 0.2 (0.2-1.0) mg/dL AST 27 (15-37) U/L ALT 37 (16-63) U/L Alkaline Phosphatase 102 (46-116) U/L CK-MB (CK-2) 1.3 (0-3.6) ng/ml Troponin I < 0.017 (0.00-0.056) ng/mL C-Reactive Protein 0.4 (<1.0) mg/dL Total Protein 7.4 (6.4-8.2) g/dl Albumin 4.0 (3.4-5.0) g/dl Globulin 3.4 gm/dL Albumin/Globulin Ratio 1.2 (1-2) Meds: Medications Discontinued Medications Generic Name Dose Route Start Last Admin Trade Name Ofelia PRN Reason Stop Dose Admin Nitroglycerin/Dextrose 25 mg in 250 mls @ 3 mls/hr 12/26/17 10:30 12/26/17 10 :39 Nitroglycerin 25 Mg/D5w 250 Ml IV 5 mcg/min ASDIRECTED KAVYA 3 mls/hr Protocol Administration 5 MCG/MIN Metoclopramide HCl 7.5 mg 12/26/17 10:48 12/26/17 10:57 Reglan IVPUSH 12/26/17 10:49 7.5 mg ONETIME ONE Administration - Radiology Interpretation Free Text/Narrative:: 62-year-old male presents to the ED because he simply doesn't feel well. Particular feels dizzy and offkilter with walking. He has associated development of central chest discomfort after blowing snow this morning about 0650 hrs. States the chest pressure discomfort is easing up and is currently 1 out of 5. He has no known coronary disease. He simply feels a little offkilter with walking and dizzy with movement. He did not fall or hit his head recently. Neuro exam reveals that he has mild my statements on right lateral gaze. The rest of his cranial nerves are intact. There is no pronator drift rapid altering movements are normal. Regards to his chest pain it certainly sounds potentially angina in origin. His ECG suggests left ventricular hypertrophy pattern with no signs of ischemia. He is not known to have any coronary disease. He will be treated as such however he has taken to [employer] aspirin 325 mg strength at work at 0730 hrs. this morning. We'll place on low dose Cardizem drip at 5 mcg/m since his blood pressure is 105 systolic. Will await labs including cardiac markers. One view chest x-ray to be obtained. He will be given Reglan 7.5 mg IV on the suspicion that he has mild vertigo symptoms. - Re-Assessments/Exams Free Text/Narrative Re-Assessment/Exam: 12/26/17 11:27 portable chest x-ray reveals hyperinflated lung manley with borderline cardiomegaly. 12/26/17 11:30 Labs are back showing a white count of 6.11 with 78% neutrophils no bands. Hemoglobin is 12.1 with hematocrit of 36.1. PT is 11.4 with an INR 1.06 PTT is 26. Sodium 1:30 with potassium of 4.2. Chloride 103 with a bicarbonate of 28. And a gap is 11.2. BUNs 24th of quinine of 1.2. Glucose is 94. Calcium was 8.7 with a magnesium slightly low at 1.7. Liver function normal cardiac markers show CK-MB fraction of 1.3 and a troponin I of less than 0.017. Note this was done 3-1/2 hours post development of central chest discomfort. He therefore ruled out as far as myocardial infarction goes. 12/26/17 11:45 patient feels well. BP is currently 103 on 63. We will get him up and road test him in terms of his vertigo symptoms. I will probably place him on Antivert 12.5 mg every 8 hours for the next 5 days. 12/26/17 12:00: The patient up walking he can still feel a slight amount of vertigo but much improved compared to when he came. He therefore be discharged home. Given a note to excuse him from the work place for the next 2 days. Departure - Departure Time of Disposition: 11:46 Disposition: Home, Self-Care 01 Condition: Fair Clinical Impression: Non-cardiac chest pain Benign positional vertigo Qualifiers: Laterality: left Qualified Code(s): H81.12 - Benign paroxysmal vertigo, left ear Prescriptions: Meclizine [Antivert] 12.5 mg PO TID #15 tab Instructions: Vertigo, [id number], Nonspecific Chest Pain, [id number] Referrals: Iraj Young MD [Primary Care Provider] - Forms: ED Department Discharge, ED Return to Work/School Form Additional Instructions: Evaluation the emergency room today in regards to a couple of things. After shoveling snow this morning with the aid of the snowblower you have developed central chest discomfort which was present still when you got to work but gradually subsided. Associated feeling of being offkilter or dizzy. Therefore you underwent a complete cardiac workup and no abnormalities were identified on ECG chest x-ray or lab testing. You do have a component of vertigo which means balance mechanism in the left ear is not working appropriately. This is making her feel a bit offkilter with movement of your head and neck. It goes away when we hold still. Due to the nature of your work I'm going to suggest her out of work for the next 2 days due to being up and down with head movement. Just starting Antivert 12.5 mg every 8 hours with the first tablet being due at 2 PM today than 10:00 tonight and then 6:00 in the morning. This should be taken every 8 hours for the next 5 days to alleviate symptoms. - My Orders Last 24 Hours: My Active Orders 12/26/17 10:20 PRO B-TYPE NATRIUR PEPT,BNPPRO [CHEM] Stat 12/26/17 10:25 EKG Documentation Completion [RC] STAT Orthostatic Vital Signs [RC] ASDIRECTED - Assessment/Plan Last 24 Hours: My Active Orders 12/26/17 10:20 PRO B-TYPE NATRIUR PEPT,BNPPRO [CHEM] Stat 12/26/17 10:25 EKG Documentation Completion [RC] STAT Orthostatic Vital Signs [RC] ASDIRECTED
[2017-12-26] MEDS ORDERED: Nitroglycerin/D5W 25 MG/250 ML BOTTLE IV SCH (10:30)
[2017-12-26] MEDS ORDERED: Metoclopramide 10 MG/2 ML SDV IVPUSH ONE (10:48)
--- NOTE | 2017-12-26 11:03 | CR ---
Chest: Portable view of the chest was obtained. Comparison: Prior chest x-ray of 12/12/15. Heart is slightly enlarged. Tortuous thoracic aorta is seen. Lungs are clear with no acute parenchymal change. Mild scoliosis and degenerative change is seen within the spine. Impression: 1. Incidental findings. Diagnostic code #2
== END 2017-12-26 12:00 | disposition home or self-care (01) ==
LOC: JD.ED 09:59
DX: H81.12 Benign paroxysmal vertigo, left ear (principal); R07.89 Other chest pain; Z79.899 Other long term (current) drug therapy; Z87.891 Personal history of nicotine dependence
CPT/HCPCS: 36415; 71045; 80053; 82553; 83735; 83880; 84484; 85025; 85610; 85730; 86140; 93005; 96365; 96375; 99285; J2765; 93010

== ENCOUNTER 2018-01-01 22:12 | Emergency (ER) | payer BC ==
[2018-01-01 22:29] VITALS: BP 149/82
[2018-01-01] MEDS ORDERED: Sodium Chloride 0.9% 10 ML Syringe FLUSH PRN (22:49)
[2018-01-01] MEDS ORDERED: HYDROmorphone 0.5 MG/0.5 ML SYRINGE IVPUSH STA ×2 (23:02→23:58)
[2018-01-01] MEDS ORDERED: Sodium Chloride 0.9% 1,000 ML IV SCH (23:15)
[2018-01-01] MEDS ORDERED: Ondansetron 4 MG/2 ML SDV IVPUSH ONE (23:58)
--- NOTE | 2018-01-01 23:58 | EDM.PDOC ---
ED HPI GENERAL MEDICAL PROBLEM - General Chief Complaint: Flank Pain Stated Complaint: KIDNEY PAIN Time Seen by Provider: 01/01/18 23:03 Source of Information: Reports: Patient, Family () History Limitations: Reports: No Limitations - History of Present Illness INITIAL COMMENTS - FREE TEXT/NARRATIVE: The patient states that he developed bilateral flank pain around 20:00 tonight, and that it progressively got worse. It radiates to his lower abdomen. He had nausea and emesis at home, and 3 episodes here in the ED. He states that he is unable to urinate. No recent fever. The patient has a history of ulcerative colitis, status post a colectomy with ileostomy in March 2015. He states that he had similar symptoms prior to getting the colostomy, but none since. Bilateral Flank Pain Score (Numeric/FACES): 10 - Related Data Allergies Allergy/AdvReac Type Severity Reaction Status Date / Time No Known Allergies Allergy Verified 01/01/18 22:24 Home Meds: Home Meds PHENobarbital [Phenobarbital] 97.2 mg PO BEDTIME 12/08/14 [History] Acetaminophen [Tylenol] 650 mg PO Q4H PRN 10/03/15 [History] Phenytoin 8 ml PO BID 12/12/15 [History] Tamsulosin HCl [Flomax] 1 tab PO QPM PRN #5 cap.er.24h 01/02/18 [Rx] Past Medical History HEENT History: Reports: Impaired Vision Gastrointestinal History: Reports: Bowel Obstruction, GERD, Hemorrhoids, Inflammatory Bowel Disease (Ulcerative colitis) Musculoskeletal History: Reports: Arthritis Neurological History: Reports: Seizure (last in 1991) Hematologic History: Reports: Blood Transfusion(s) - Infectious Disease History Infectious Disease History: Reports: C-Difficile, Chicken Pox, Influenza, Measles, Mumps - Past Surgical History HEENT Surgical History: Reports: Cataract Surgery GI Surgical History: Reports: Colon (Total colectomy with ileostomy March 2015) Dermatological Surgical History: Reports: Skin Biopsy Social & Family History - Family History Family Medical History: Noncontributory Other Oncologic Family History: DM - mother. [place] - brother at age 39 - Tobacco Use Smoking Status *Q: Former Smoker Years of Tobacco use: 5 Month/Year Tobacco Last Used: Quit 1979 Second Hand Smoke Exposure: No - Caffeine Use Caffeine Use: Reports: Coffee - Alcohol Use Days Per Week of Alcohol Use: 0 - Recreational Drug Use Recreational Drug Use: No Drug Use in Last 12 Months: No - Living Situation & Occupation Living situation: Reports: , with Spouse Occupation: Employed ED ROS GENERAL - Review of Systems Review Of Systems: ROS reveals no pertinent complaints other than HPI. ED EXAM, RENAL/ - Physical Exam Exam: See Below Exam Limited By: No Limitations General Appearance: Alert, WD/WN, No Apparent Distress Eye Exam: Bilateral Eye: Normal Inspection Ears: Normal External Exam, Hearing Grossly Normal Nose: Normal Inspection, No Blood Throat/Mouth: Normal Inspection, Normal Lips, Normal Voice, No Airway Compromise Head: Atraumatic, Normocephalic Neck: Normal Inspection, Full Range of Motion Respiratory/Chest: No Respiratory Distress, Lungs Clear, Normal Breath Sounds, No Accessory Muscle Use Cardiovascular: Normal Peripheral Pulses, Regular Rate, Rhythm, No Gallop, No JVD, No Murmur, No Rub GI/Abdominal: Normal Bowel Sounds, Soft, Non-Tender, No Organomegaly, No Distention, No Abnormal Bruit, No Mass, Other (Ileostomy to the right lower quadrant) (Male) Exam: Deferred Rectal (Males) Exam: Deferred Back Exam: Normal Inspection, Full Range of Motion, CVA Tenderness (L). No: CVA Tenderness (R) Extremities: Normal Inspection, Normal Range of Motion, No Pedal Edema, Normal Capillary Refill Neurological: Alert, Oriented, Normal Cognition, No Motor/Sensory Deficits Psychiatric: Normal Affect, Anxious Skin Exam: Warm, Dry, Intact, Normal Color, No Rash Course - Vital Signs Last Recorded V/S: Last Vital Signs Temp 36.3 C 01/01/18 22:25 Pulse 52 L 01/01/18 22:25 Resp 18 01/01/18 22:25 BP 149/82 H 01/01/18 22:25 Pulse Ox 99 01/01/18 22:25 - Orders/Labs/Meds Orders: Active Orders 24 hr Category Date Time Status Strain Urine [RC] ASDIRECTED Care 01/02/18 00:18 Active Abdomen Pelvis wo Cont [CT] Stat Exams 01/01/18 23:08 Taken Saline Lock Insert [OM.PC] Routine Oth 01/01/18 22:49 Ordered Labs: Laboratory Tests 01/01/18 01/01/18 01/01/18 Range/Units 22:40 22:40 22:40 WBC 7.61 (4.23-9.07) K/mm3 RBC 4.28 L (4.63-6.08) M/mm3 Hgb 12.6 L (13.7-17.5) gm/L Hct 37.6 L (40.1-51.0) % MCV 87.9 (79.0-92.2) fl MCH 29.4 (25.7-32.2) pg MCHC 33.5 (32.2-35.5) g/dl RDW Std Deviation 40.5 (35.1-43.9) fL Plt Count 334 (163-337) K/mm3 MPV 8.7 L (9.4-12.3) fl Neutrophils % (Manual) 62 H (40-60) % Band Neutrophils % 0 (0-10) % Lymphocytes % (Manual) 22 (20-40) % Atypical Lymphs % 4 % Monocytes % (Manual) 8 (2-10) % Eosinophils % (Manual) 4 (0.8-7.0) % Basophils % (Manual) 0 L (0.2-1.2) Platelet Estimate Adequate Plt Morphology Comment Normal RBC Morph Comment Normal Sodium 141 (136-145) mEq/L Potassium 3.9 (3.5-5.1) mEq/L Chloride 102 (98-107) mEq/L Carbon Dioxide 29 (21-32) mEq/L Anion Gap 13.9 (5-15) BUN 26 H (7-18) mg/dL Creatinine 1.0 (0.7-1.3) mg/dL Est Cr Clr Drug Dosing 85.68 mL/min Estimated GFR (MDRD) > 60 (>60) mL/min BUN/Creatinine Ratio 26.0 H (14-18) Glucose 103 (74-106) mg/dL Calcium 9.1 (8.5-10.1) mg/dL Total Bilirubin 0.2 (0.2-1.0) mg/dL AST 24 (15-37) U/L ALT 34 (16-63) U/L Alkaline Phosphatase 116 (46-116) U/L Total Protein 7.8 (6.4-8.2) g/dl Albumin 4.4 (3.4-5.0) g/dl Globulin 3.4 gm/dL Albumin/Globulin Ratio 1.3 (1-2) Urine Color Yellow (Yellow) Urine Appearance Clear (Clear) Urine pH 5.5 (5.0-8.0) Ur Specific [place] > or = 1.030 (1.005-1.030) Urine Protein 2+ H (Negative) Urine Glucose (UA) Negative (Negative) Urine Ketones Trace H (Negative) Urine Occult Blood 3+ H (Negative) Urine Nitrite Negative (Negative) Urine Bilirubin 1+ H (Negative) Urine Urobilinogen 0.2 (0.2-1.0) Ur Leukocyte Esterase Negative (Negative) Urine RBC 5-10 H (0-5) /hpf Urine WBC 0-5 (0-5) /hpf Ur Epithelial Cells 0-5 (0-5) /hpf Calcium Oxalate Crystal Few H (NONE) Urine Bacteria Rare (FEW) /hpf Hyaline Casts 0-5 (0-5) /lpf Urine Mucus Many H (FEW) /hpf Meds: Medications Discontinued Medications Generic Name Dose Route Start Last Admin Trade Name Freq PRN Reason Stop Dose Admin Hydromorphone HCl 1 mg 01/01/18 23:02 01/01/18 23:07 Dilaudid IVPUSH 01/01/18 23:03 1 mg ONETIME STA Administration Hydromorphone HCl 1 mg 01/01/18 23:58 01/02/18 00:05 Dilaudid IVPUSH 01/01/18 23:59 1 mg ONETIME STA Administration Sodium Chloride 1,000 mls @ 150 mls/hr 01/01/18 23:15 01/01/18 23:25 Normal Saline IV 150 mls/hr ASDIRECTED KAVYA Administration Ibuprofen 600 mg 01/02/18 00:55 01/02/18 01:20 Motrin PO 01/02/18 00:56 600 mg ONETIME ONE Administration Ondansetron HCl 4 mg 01/01/18 23:58 01/02/18 00:08 Zofran IVPUSH 01/01/18 23:59 4 mg ONETIME ONE Administration Sodium Chloride 10 ml 01/01/18 22:49 01/01/18 23:10 Saline Flush FLUSH 10 ml ASDIRECTED PRN Administration Keep Vein Open Tamsulosin HCl 0.4 mg 01/02/18 00:55 01/02/18 01:21 Flomax PO 01/02/18 00:56 0.4 mg ONETIME ONE Administration - Re-Assessments/Exams Free Text/Narrative Re-Assessment/Exam: 01/01/18 23:56 CT of the abdomen and pelvis without IV contrast is read by [facility] as : 3 mm left ureterovesicular junction calculus with [id number] hydronephrosis. Postoperative change of total colectomy for obstruction. 8 mm left lower lobe pulmonary nodule. Elective chest CT should be considered. Cholelithiasis. Coronary artery disease. 01/02/18 00:51 Test results discussed with the patient and his . As above, the CT scan findings a 3 mm ureterolith at the UVJ. Given the size and location, the patient will almost certainly pass this stone on his own. He'll be discharged home with prescriptions for [place] and Zofran via [facility], along with a written prescription for Flomax. He has been provided a urine strainer. I will refer him to Dr. Bradley, should his symptoms not improve over the next few days. When the patient had similar symptoms in the past, it was do to a bowel obstruction, therefore the patient expressed concerns about a bowel obstruction this time. The CT scan report specifically mentions, however, "No obstruction". Departure - Departure Time of Disposition: 00:58 Disposition: Home, Self-Care 01 Condition: Fair Clinical Impression: Ureterolithiasis - Discharge Information Prescriptions: Tamsulosin HCl [Flomax] 1 tab PO QPM PRN #5 cap.er.24h PRN Reason: Pain Instructions: Kidney Stones, [id number] Referrals: Iraj Young MD [Primary Care Provider] - Benjie Bradley MD [Ordering Only Provider] - Forms: ED Department Discharge Additional Instructions: You were seen in the emergency room for flank pain on both sides, radiating to your lower abdomen, along with nausea and vomiting. Workup in the ER included blood work, a urinalysis, and a CT scan of your abdomen and pelvis. The CT scan found that you have a 3 mm stone in your distal ureter, right at your bladder. The CT scan specifically did not find a bowel obstruction. Based on the size and location of your stone, you will almost certainly pass this on your own within the next few days. Stay adequately hydrated. Strain all your urine. If you collect a stone, take it to your doctor for analysis. Take [id number] ibuprofen, 3-4 tablets (600-800 mg) every 8 hours, with food. Take 1 to 2 tablets of the narcotic pain reliever [place] up to every 6 hours, as needed for pain not relieved by ibuprofen. If you take [place], do not drive or operate heavy machinery for 10 hours afterwards. Dissolve one tablet of the anti-nausea medicine Zofran on your tongue up to every 8 hours, as needed for nausea/vomiting. Take one tablet of the anti-spasm medicine Flomax each evening, starting 01/02/2018. If you are still having pain after a few days, a follow-up with the Urologist Dr. Bradley. If any other problems, please do not hesitate to return to the ER. - My Orders Last 24 Hours: My Active Orders 01/01/18 22:49 Saline Lock Insert [OM.PC] Routine 01/01/18 23:08 Abdomen Pelvis wo Cont [CT] Stat 01/02/18 00:18 Strain Urine [RC] ASDIRECTED - Assessment/Plan Last 24 Hours: My Active Orders 01/01/18 22:49 Saline Lock Insert [OM.PC] Routine 01/01/18 23:08 Abdomen Pelvis wo Cont [CT] Stat 01/02/18 00:18 Strain Urine [RC] ASDIRECTED
[2018-01-02] MEDS ORDERED: Tamsulosin 0.4 MG Cap.ER PO ONE (00:55)
[2018-01-02] MEDS ORDERED: Ibuprofen 600 MG Tab PO ONE (00:55)
--- NOTE | 2018-01-02 09:32 | CT ---
CT abdomen and pelvis Technique: Multiple axial sections were obtained from above the dome of the diaphragm inferiorly through the pubic symphysis. Intravenous contrast not utilized. Study has been performed as a renal stone protocol. Comparison: Prior CT abdomen and pelvis exam of 12/12/[address] abdomen and pelvis exam of 12/08/14. Findings: Subpleural nodule is identified within the left lung base measuring about 7 mm which is seen back to previous CT abdomen and pelvis study of 12/08/14 which appears stable in size and is therefore felt to be benign. Several old left lower rib fractures are incidentally noted. Calcified gallstones are seen within the gallbladder which represent an interval change from prior CT exam. Left-sided hydronephrosis is seen with inflammatory change noted around the left UPJ. Ureter is dilated down to the UVJ which is caused by an obstructing calculus within the distal left ureter located at the UVJ measuring about 4 mm. No other abnormal calcifications are seen along the course of the ureters. No abnormal calcifications are seen within the kidneys. Noncontrast appearance of the liver shows no discrete abnormality. Noncontrast appearance of the spleen appears within normal limits. Minimal nodularity is seen within the left adrenal gland believed to be stable. Aorta shows no aneurysmal dilatation. Pancreas shows no discrete abnormality. No retroperitoneal adenopathy or mesenteric abnormalities are seen. Prior colectomy is noted with surgical anastomotic sutures being seen within the rectum. No free fluid or inflammatory change is seen. No bowel dilatation is noted. Left lower ostomy is seen. Bone window settings show mild scattered degenerative endplate spurring within the spine. Impression: 1. Subpleural nodule within the left lung base which appears stable from prior CT studies back to 2014 and is therefore felt to be incidental. 2. 4 mm obstructing stone located within the distal left ureter at the UVJ. 3. Calcified gallstones which are an interval change from prior CT exam. 4. Previous colectomy with ostomy. 5. Other incidental findings. Diagnostic code #3 Agree with preliminary report issued by [facility] ([facility] preliminary report dictated on 01/02/18, 12:48 AM Central Time)
== END 2018-01-02 01:25 | disposition home or self-care (01) ==
LOC: JD.ED 22:12
DX: N13.2 Hydronephrosis with renal and ureteral calculous obstruction (principal); Z87.891 Personal history of nicotine dependence
CPT/HCPCS: 36415; 74176; 80053; 81001; 85025; 96361; 96374; 96375; 96376; 99284; A9270; J1170; J2405; J7040; J7050

== ENCOUNTER 2018-10-16 11:36 | Emergency (ER) | payer OTHER, BC ==
[2018-10-16] MEDS ORDERED: Lidocaine 1% with EPINEPHrine 1:100,000 20 ML MDV INJECT ONE (12:05)
--- NOTE | 2018-10-16 12:09 | EDM.PDOC ---
ED HPI GENERAL MEDICAL PROBLEM - General Chief Complaint: Laceration Stated Complaint: HEAD LAC Time Seen by Provider: 10/16/18 12:00 Source of Information: Reports: Patient History Limitations: Reports: No Limitations - History of Present Illness INITIAL COMMENTS - FREE TEXT/NARRATIVE: Patient is a 63-year-old male presents ED complaining of a laceration along the hairline of the right side of the forehead. Patient states while working on a piece of equipment a coworker was holding something in place with a large screwdriver slipped and the handle hit him in the head. There was no loss of consciousness. No neck pain. No vision changes. No nausea vomiting. No numbness or tingling to extremities. No other complaints. Tetanus status up-to-date. Bleeding minimal. Controlled with direct pressure. Pain is minimal at this time as well. He has no headache. Patient is on no blood thinners. States today he did take 2 baby aspirin but normally does not take these on a regular basis. - Related Data Allergies Allergy/AdvReac Type Severity Reaction Status Date / Time No Known Allergies Allergy Verified 10/16/18 11:49 Home Meds: Home Meds PHENobarbital [Phenobarbital] 97.2 mg PO BEDTIME 12/08/14 [History] Acetaminophen [Tylenol] 650 mg PO Q4H PRN 10/03/15 [History] Phenytoin 8 ml PO BID 12/12/15 [History] Tamsulosin HCl [Flomax] 1 tab PO QPM PRN #5 cap.er.24h 01/02/18 [Rx] Past Medical History - Past Health History Medical/Surgical History: Denies Medical/Surgical History HEENT History: Reports: Impaired Vision Respiratory History: Reports: None Gastrointestinal History: Reports: Bowel Obstruction, GERD, Hemorrhoids, Inflammatory Bowel Disease Other Gastrointestinal History: ulcerative colitis, colectomy Genitourinary History: Reports: None Musculoskeletal History: Reports: Arthritis Neurological History: Reports: Seizure Other Neuro History: last seizure in 1991 Endocrine/Metabolic History: Reports: None Hematologic History: Reports: Blood Transfusion(s) Oncologic (Cancer) History: Reports: None Dermatologic History: Reports: None - Infectious Disease History Infectious Disease History: Reports: C-Difficile, Chicken Pox, Influenza, Measles, Mumps - Past Surgical History HEENT Surgical History: Reports: Cataract Surgery GI Surgical History: Reports: Colon Dermatological Surgical History: Reports: Skin Biopsy Social & Family History - Family History Family Medical History: Noncontributory Other Oncologic Family History: DM - mother. [place] - brother at age 39 - Tobacco Use Smoking Status *Q: Former Smoker Used Tobacco, but Quit: Yes Month/Year Tobacco Last Used: 40 yrs ago - Caffeine Use Caffeine Use: Reports: Coffee - Recreational Drug Use Recreational Drug Use: No - Living Situation & Occupation Living situation: Reports: , with Spouse Occupation: Employed ED ROS GENERAL - Review of Systems Review Of Systems: ROS reveals no pertinent complaints other than HPI. ED EXAM, SKIN/RASH Exam: See Below Exam Limited By: No Limitations General Appearance: Alert, WD/WN, No Apparent Distress Eye Exam: Bilateral Eye: Normal Inspection, PERRL Ears: Hearing Grossly Normal Nose: Normal Inspection Throat/Mouth: Normal Voice, No Airway Compromise Neck: Normal Inspection, Supple Respiratory/Chest: No Respiratory Distress, Normal Breath Sounds, No Accessory Muscle Use Cardiovascular: Normal Peripheral Pulses, Regular Rate, Rhythm Neurological: Alert, Oriented, CN II-XII Intact, Normal Cognition, No Motor/ Sensory Deficits (Moves all extremities. No numbness or tingling to extremities and/or head.) Psychiatric: Normal Affect, Normal Mood Skin: Warm, Dry Location, Skin: Head (2 cm deep laceration to the right forehead along the hairline. Bleeding controlled. No foreign objects present. No bony abnormalities noted.) ED SKIN PROCEDURES - Laceration/Wound Repair Head Lac/Wound length In cm: 2 Appearance: Subcutaneous, Clean Distal NVT: Neuro & Vascular Intact Anesthetic Type: Local Local Anesthesia - Lidocaine (Xylocaine): 1% with EPI Local Anesthetic Volume: 4cc Skin Prep: Chlorhexidine (Hibiciens), Saline, Sterile Drape Exploration/Debridement/Repair: Wound Explored, In a Bloodless Field, Explored to Base, No Foreign Material Found Closed with: Sutures Suture Size: 4-0 # of Sutures: 4 Suture Type: Prolene, Simple Drain Placement: No Sterile Dressing Applied: Nurse Tetanus Status Addressed: Yes Complications: No Course - Vital Signs Last Recorded V/S: Last Vital Signs Temp 98.7 F 10/16/18 11:45 Pulse 82 10/16/18 11:45 Resp 16 10/16/18 11:45 BP Pulse Ox 99 10/16/18 11:45 - Orders/Labs/Meds Meds: Medications Discontinued Medications Generic Name Dose Route Start Last Admin Trade Name Ofelia PRN Reason Stop Dose Admin Lidocaine/Epinephrine 20 ml 10/16/18 12:05 10/16/18 12:15 Xylocaine 1% With Epinephrine 1:100,000 INJECT 10/16/18 12:06 20 ml ONETIME ONE Administration - Re-Assessments/Exams Free Text/Narrative Re-Assessment/Exam: Laceration will require closure by primary intention's. Ordered lidocaine with epi. Tetanus status up-to-date. Laceration closed with no complications by Angelica AUGUSTINE. Discharge instructions as documented. Return precautions discussed with patient. Departure - Departure Time of Disposition: 12:57 Disposition: Home, Self-Care 01 Condition: Good Clinical Impression: Laceration, Contusion - Discharge Information Instructions: Laceration Care, Adult, [id number], Stitches, [place], or Adhesive Wound Closure, [id number] Referrals: Iraj Young MD [Primary Care Provider] - Forms: ED Department Discharge Additional Instructions: Cleanse site twice daily, PAT dry, reapply bacitracin ointment. Keep area clean and dry. Do not soak wound. Followup with a provider at [facility] in 10 days for suture removal free of charge. Return back to the ED for increased redness, increased swelling, or purulent drainage.
== END 2018-10-16 13:06 | disposition home or self-care (01) ==
LOC: JD.ED 11:36
DX: S01.81XA Laceration without foreign body of other part of head, initial encounter (principal); Z79.899 Other long term (current) drug therapy; Z87.891 Personal history of nicotine dependence; W26.8XXA Contact with other sharp object(s), not elsewhere classified, initial encounter
CPT/HCPCS: 12001; 12011; 99282; 99283-25

== ENCOUNTER 2018-10-31 18:35 | Emergency (ER) | payer OTHER, BC | END 2018-10-31 18:40 | LOC: JD.ED 18:35 | DX: S01.81XD Laceration without foreign body of other part of head, subsequent encounter (principal) ==

== ENCOUNTER 2019-02-20 14:53 | Inpatient (IN) | payer BC, OTHER ==
[2019-02-20] MEDS ORDERED: HYDROmorphone 0.5 MG/0.5 ML Syringe IVPUSH ONE ×2 (16:04→18:17)
[2019-02-20] MEDS ORDERED: Ondansetron 4 MG/2 ML SDV IVPUSH ONE ×2 (16:05→18:17)
[2019-02-20] MEDS ORDERED: Sodium Chloride 0.9% 1,000 ML IV SCH ×2 (16:15→18:00)
[2019-02-20] MEDS ORDERED: Diatrizoate Meglumine/Diatrizoate Sodium 37% 120 ML Bottle PO ONE ×2 (16:44→17:11)
[2019-02-20] MEDS ORDERED: Sodium Chloride 0.9% 10 ML Syringe FLUSH PRN (16:45)
[2019-02-20] MEDS ORDERED: Iohexol 350 MG/ML 75 ML Bottle IVPUSH ONE (16:45)
[2019-02-20] MEDS ORDERED: Sodium Chloride 0.9% 1,000 ML IV ONE (17:28)
--- NOTE | 2019-02-20 17:46 | CT ---
CT abdomen and pelvis Technique: Multiple axial sections were obtained from above the dome of the diaphragm inferiorly through the pubic symphysis. Oral contrast has been given. No IV contrast was utilized. Comparison: Previous CT abdomen and pelvis exam of 01/01/18. Findings: Previous ostomy is noted. Soft tissue air is noted within the subcutaneous tissues around the ostomy site compatible with recent surgery. Small portion of the visualized lung bases shows nothing acute. Noncontrast appearance of the liver appears within normal limits. Noncontrast spleen also appears within normal limits. Increased density compatible with gallstones are felt to be present within the gallbladder. Adrenal glands show no nodule. Pancreas shows no discrete abnormality. Kidneys show no abnormal calcifications or hydronephrosis. Aorta shows no aneurysm. No retroperitoneal adenopathy or mesenteric abnormalities are seen. Small bowel appears mildly dilated containing fluid. Surgical anastomotic sutures are seen in the region of the rectosigmoid junction. Impression: 1. Mildly prominent small bowel loops of fluid. Findings most likely due to ileus given the history of recent surgery. 2. Other incidental findings as noted above. Diagnostic code #3
--- NOTE | 2019-02-20 18:27 | EDM.PDOC ---
ED HPI GENERAL MEDICAL PROBLEM - General Chief Complaint: Abdominal Pain Stated Complaint: ABDOMINAL PAIN POST SURGERY 02/14 Time Seen by Provider: 02/20/19 15:51 Source of Information: Reports: Patient History Limitations: Reports: No Limitations - History of Present Illness INITIAL COMMENTS - FREE TEXT/NARRATIVE: 64 y/o male presents to ER with cc left lower abdominal pain for the past 6 days. He states he had a recent abdominal surgery at [facility] having his "stoma detached, hyperplasia removed and stoma re-attached." Over the past 6 days his pain has increased, he has been nauseated and vomiting. He states he has not been drinking or eating. His stoma is producing green liquid. He denies back pain, fever or chills. He is accompanied by his . His PCP is Dr. Maddox. Onset Date: 02/14/19 Onset Time: 09:00 Duration: Getting Worse Location: Reports: Abdomen Quality: Reports: Ache Severity: Mild Improves with: Reports: None Worsens with: Reports: Eating Context: Reports: Activity Associated Symptoms: Reports: Loss of Appetite, Nausea/Vomiting. Denies: Chest Pain, Fever/Chills, Shortness of Breath Bilateral Lower Abdomen Pain Score (Numeric/FACES): 10 - Related Data Allergies Allergy/AdvReac Type Severity Reaction Status Date / Time No Known Allergies Allergy Verified 02/20/19 15:06 Home Meds: Home Meds PHENobarbital [Phenobarbital] 97.2 mg PO BEDTIME 12/08/14 [History] Phenytoin 8 ml PO BID 12/12/15 [History] Past Medical History - Past Health History Medical/Surgical History: Denies Medical/Surgical History HEENT History: Reports: Impaired Vision Respiratory History: Reports: None Gastrointestinal History: Reports: Bowel Obstruction, GERD, Hemorrhoids, Inflammatory Bowel Disease Other Gastrointestinal History: ulcerative colitis, colectomy Genitourinary History: Reports: None Musculoskeletal History: Reports: Arthritis Neurological History: Reports: Seizure Other Neuro History: last seizure in 1991 Endocrine/Metabolic History: Reports: None Hematologic History: Reports: Blood Transfusion(s) Oncologic (Cancer) History: Reports: None Dermatologic History: Reports: None - Infectious Disease History Infectious Disease History: Reports: C-Difficile, Chicken Pox, Influenza, Measles, Mumps - Past Surgical History HEENT Surgical History: Reports: Cataract Surgery GI Surgical History: Reports: Colon, Other (See Below) Other GI Surgeries/Procedures: stoma Dermatological Surgical History: Reports: Skin Biopsy Social & Family History - Family History Family Medical History: Noncontributory Other Oncologic Family History: DM - mother. [place] - brother at age 39 - Tobacco Use Smoking Status *Q: Current Status Unknown - Caffeine Use Caffeine Use: Reports: Coffee - Living Situation & Occupation Living situation: Reports: , with Spouse Occupation: Employed ED ROS GENERAL - Review of Systems Review Of Systems: See Below Constitutional: Denies: Fever, Chills HEENT: Reports: Glasses Respiratory: Denies: Shortness of Breath Cardiovascular: Denies: Chest Pain Endocrine: Reports: Fatigue GI/Abdominal: Reports: Abdominal Pain, Decreased Appetite, Nausea, Vomiting. Denies: Constipation, Difficulty Swallowing : Reports: No Symptoms Musculoskeletal: Reports: No Symptoms Skin: Reports: No Symptoms Neurological: Reports: No Symptoms Psychiatric: Reports: No Symptoms Hematologic/Lymphatic: Reports: No Symptoms Immunologic: Reports: No Symptoms ED EXAM, GI/ABD - Physical Exam Exam: See Below Exam Limited By: No Limitations General Appearance: Alert, WD/WN Throat/Mouth: Normal Inspection, Normal Lips, Normal Teeth, Normal Gums, Normal Oropharynx, Normal Voice, No Airway Compromise Neck: Normal Inspection, Supple, Non-Tender, Full Range of Motion Respiratory/Chest: No Respiratory Distress, Lungs Clear, Normal Breath Sounds, No Accessory Muscle Use, Chest Non-Tender Cardiovascular: Normal Peripheral Pulses, Regular Rate, Rhythm, No Edema, No Gallop, No JVD, No Murmur, No Rub GI/Abdominal Exam: Soft, No Organomegaly, No Distention, No Abnormal Bruit, No Mass, Pelvis Stable, Tender, Other (hypoactive bowel sounds. Left colostomy beefy red collecting bile colored fluid. ). No: Rigid, Rebound Back Exam: Normal Inspection, Full Range of Motion Extremities: Normal Inspection, Normal Range of Motion, Non-Tender, No Pedal Edema, Normal Capillary Refill Neurological: Alert, Oriented, CN II-XII Intact, Normal Cognition, Normal Gait Psychiatric: Normal Affect, Normal Mood Skin Exam: Warm, Dry, Intact, Normal Color, No Rash Lymphatic: No Adenopathy Course - Vital Signs Last Recorded V/S: Last Vital Signs Temp 98.1 F 02/20/19 15:02 Pulse 75 02/20/19 15:02 Resp 18 02/20/19 15:02 BP 117/95 H 02/20/19 15:02 Pulse Ox - Orders/Labs/Meds Orders: Active Orders 24 hr Category Date Time Status Sodium Chloride 0.9% [Normal Saline] 1,000 ml Med 02/20/19 16:15 Active IV ASDIRECTED Sodium Chloride 0.9% [Normal Saline] 1,000 ml Med 02/20/19 19:00 Active IV ASDIRECTED Sodium Chloride 0.9% [Saline Flush] Med 02/20/19 16:45 Active 10 ml FLUSH ONETIME PRN NG [Nasogastric Orogastric Tube Insertion] [OM.PC] Oth 02/20/19 18:32 Ordered Routine Medication Orders Sodium Chloride (Normal Saline) 1,000 mls @ 999 mls/hr IV ASDIRECTED KAVYA Last Admin: 02/20/19 16:11 Dose: 999 mls/hr Sodium Chloride (Normal Saline) 1,000 mls @ 150 mls/hr IV ASDIRECTED KAVYA Last Admin: 02/20/19 18:30 Dose: 150 mls/hr Sodium Chloride (Saline Flush) 10 ml FLUSH ONETIME PRN PRN Reason: KEEP VEIN OPEN Last Admin: 02/20/19 17:29 Dose: 10 ml Labs: Laboratory Tests 02/20/19 02/20/19 02/20/19 Range/Units 15:14 15:14 15:14 WBC 16.27 H (4.23-9.07) K/mm3 RBC 5.80 (4.63-6.08) M/mm3 Hgb 17.1 D (13.7-17.5) gm/L Hct 49.5 (40.1-51.0) % MCV 85.3 (79.0-92.2) fl MCH 29.5 (25.7-32.2) pg MCHC 34.5 (32.2-35.5) g/dl RDW Std Deviation 39.0 (35.1-43.9) fL Plt Count 517 H (163-337) K/mm3 MPV 8.8 L (9.4-12.3) fl Neut % (Auto) 88.3 H (34.0-67.9) % Lymph % (Auto) 4.9 L (21.8-53.1) % [place] % (Auto) 5.9 (5.3-12.2) % Eos % (Auto) 0.6 L (0.8-7.0) Baso % (Auto) 0.1 (0.1-1.2) % Neut # (Auto) 14.37 H (1.78-5.38) K/mm3 Lymph # (Auto) 0.79 L (1.32-3.57) K/mm3 [place] # (Auto) 0.96 H (0.30-0.82) K/mm3 Eos # (Auto) 0.09 (0.04-0.54) K/mm3 Baso # (Auto) 0.02 (0.01-0.08) K/mm3 Manual Slide Review Abnormal smear Sodium 128 L (136-145) mEq/L Potassium 5.1 (3.5-5.1) mEq/L Chloride 92 L (98-107) mEq/L Carbon Dioxide 22 (21-32) mEq/L Anion Gap 19.1 H (5-15) BUN 75 H D (7-18) mg/dL Creatinine 2.6 H (0.7-1.3) mg/dL Est Cr Clr Drug Dosing 28.35 mL/min Estimated GFR (MDRD) 25 (>60) mL/min BUN/Creatinine Ratio 28.8 H (14-18) Glucose 167 H (80-115) mg/dL Calcium 10.3 H (8.5-10.1) mg/dL Total Bilirubin 0.4 (0.2-1.0) mg/dL AST 31 (15-37) U/L ALT 51 (16-63) U/L Alkaline Phosphatase 168 H (46-116) U/L Total Protein 10.5 H (6.4-8.2) g/dl Albumin 4.9 (3.4-5.0) g/dl Globulin 5.6 gm/dL Albumin/Globulin Ratio 0.9 L (1-2) Lipase 210 (73-393) U/L Meds: Medications Generic Name Dose Route Start Last Admin Trade Name Freq PRN Reason Stop Dose Admin Sodium Chloride 1,000 mls @ 999 mls/hr 02/20/19 16:15 02/20/19 16:11 Normal Saline IV 999 mls/hr ASDIRECTED KAVYA Administration Sodium Chloride 1,000 mls @ 150 mls/hr 02/20/19 19:00 02/20/19 18:30 Normal Saline IV 150 mls/hr ASDIRECTED KAVYA Administration Sodium Chloride 10 ml 02/20/19 16:45 02/20/19 17:29 Saline Flush FLUSH 10 ml ONETIME PRN Administration KEEP VEIN OPEN Discontinued Medications Generic Name Dose Route Start Last Admin Trade Name Freq PRN Reason Stop Dose Admin Diatrizoate Meglum/Diatrizoate Sod 60 ml 02/20/19 16:44 Gastrografin 37% PO 02/20/19 16:45 ONETIME ONE Diatrizoate Meglum/Diatrizoate Sod 60 ml 02/20/19 17:11 02/20/19 17:23 Gastrografin 37% PO 02/20/19 17:12 60 ml ONETIME ONE Administration Hydromorphone HCl 1 mg 02/20/19 16:04 02/20/19 16:12 Dilaudid IVPUSH 02/20/19 16:05 1 mg ONETIME ONE Administration Hydromorphone HCl 1 mg 02/20/19 18:17 02/20/19 18:32 Dilaudid IVPUSH 02/20/19 18:18 1 mg ONETIME ONE Administration Sodium Chloride 1,000 mls @ 999 mls/hr 02/20/19 17:28 02/20/19 17:29 Normal Saline IV 02/20/19 18:28 999 mls/hr ONETIME ONE Administration Sodium Chloride 1,000 mls @ 999 mls/hr 02/20/19 18:00 Normal Saline IV ASDIRECTED KAVYA Iohexol 75 ml 02/20/19 16:45 Omnipaque IVPUSH 02/20/19 16:46 ONETIME ONE Ondansetron HCl 4 mg 02/20/19 16:05 02/20/19 16:11 Zofran IVPUSH 02/20/19 16:06 4 mg ONETIME ONE Administration Ondansetron HCl 4 mg 02/20/19 18:17 02/20/19 18:31 Zofran IVPUSH 02/20/19 18:18 4 mg ONETIME ONE Administration - Re-Assessments/Exams Free Text/Narrative Re-Assessment/Exam: 02/20/19 1800 WBC 16.287 RBC 5.80 H & H 17.1/49.5 PLT 517 NA + 128 Kt+ 5.1 CHL 92 CO2 22 BUN 75 CREATINE 2.6 GLUCOSE 167 LIPASE 210 AST 30 ALT 75. His Abdominal CT revealed mildly prominent small bowel loops of fluid. Findings most likely due to ileus given the history of recent surgery. 02/20/191829 Spoke with Dr. Pablo who agreed to consultation and is available if surgically necessary. 02/20/191834 Spoke with Dr. Steward who agreed to admit the patient for dehydration and pain management. I discussed plan of care with patient and . ?They are in agreement for admission. I will order NG. Patient is stable at time of admission. Departure - Departure Time of Disposition: 19:45 Disposition: Admitted As Inpatient 68 Condition: Good Clinical Impression: Abdominal pain Qualifiers: Abdominal location: left lower quadrant Qualified Code(s): R10.32 - Left lower quadrant pain - Discharge Information - My Orders Last 24 Hours: My Active Orders 02/20/19 16:15 Sodium Chloride 0.9% [Normal Saline] 1,000 ml IV ASDIRECTED 02/20/19 16:45 Sodium Chloride 0.9% [Saline Flush] 10 ml FLUSH ONETIME PRN 02/20/19 18:32 NG [Nasogastric Orogastric Tube Insertion] [OM.PC] Routine 02/20/19 19:00 Sodium Chloride 0.9% [Normal Saline] 1,000 ml IV ASDIRECTED - Assessment/Plan Last 24 Hours: My Active Orders 02/20/19 16:15 Sodium Chloride 0.9% [Normal Saline] 1,000 ml IV ASDIRECTED 02/20/19 16:45 Sodium Chloride 0.9% [Saline Flush] 10 ml FLUSH ONETIME PRN 02/20/19 18:32 NG [Nasogastric Orogastric Tube Insertion] [OM.PC] Routine 02/20/19 19:00 Sodium Chloride 0.9% [Normal Saline] 1,000 ml IV ASDIRECTED
[2019-02-20] MEDS: Sodium Chloride 0.9% 1,000 ML IV SCH (18:30)
[2019-02-21] MEDS: HYDROmorphone 1 MG/ML Syringe IVPUSH PRN ×2 (01:41→13:18)
[2019-02-21] MEDS: Sodium Chloride 0.9% 1,000 ML IV SCH ×4 (02:33→21:37)
--- NOTE | 2019-02-21 06:22 | PCM.HP ---
H&P History of Present Illness - General Date of Service: 02/21/19 Admit Problem/Dx: Admission Diagnosis/Problem Admission Diagnosis/Problem Dehydration Source of Information: Patient, Provider, RN, RN Notes Reviewed History Limitations: Reports: No Limitations - History of Present Illness Initial Comments - Free Text/Narative: Tien Morales is a 64 yo male who presented to our ED on 02/20/19 with left lower quadrant abdominal pain which has been ongoing for the past 6 days. He reportedly underwent an abdominal surgery at [place] and reports he "had his stoma detach, hyperplasia removed, and stoma reattached." Reports his pain has been increasing over the past 6 days and he has been nauseated and been vomiting. He has not been eating or drinking. His stoma is producing green liquid. Denies any back pain, fever, chills. He is accompanied by his . In the ED temperature 98.1 Fahrenheit. Pulse 75. Respirations 18. Blood pressure 117/95. Labs are obtained: WBC is elevated at 16.27. Hemoglobin 17.1. Hematocrit 49.5. He is normocytic. Platelets are elevated at 517,000. Pupils are elevated at 88.3%. Sodium is 128. Potassium 5.1. Chloride 92. Carbon oxide 22. Anion gap is quite high at 19.1. BUN is 75. Creatinine is 2.6. EGFR is 25. Glucose is 167. Calcium 10.3. Bilirubin 0.4. AST 31, ALT 51, alkaline phosphatase 168. Protein is 10.5. Albumin is 4.9. Lipase is 210. He is given a 1 L fluid bolus and started on 150 mils an hour of saline. He is given Dilaudid for pain and [address] of the abdomen and pelvis is obtained and interpreted by Dr. Ocampo as "1. Mildly prominent small bowel loops of fluid. Findings most likely due to ileus given the history of recent surgery. 2. Other incidental findings as noted above." General surgeon, Dr. Pablo, contacted by the ED provider agrees to consultation and was says he was available if surgically necessary. NG tube placed in the ED. He subsequently admitted to the medical floor for management of this ileus. He carries a history of: prior bowel obstruction, GERD, hemorrhoids, IBD, ulcerative colitis, colectomy, arthritis, seizures, prior C. difficile infection. He is a full code. His PCP is Dr. Maddox. Bilateral Lower Abdomen Pain Score (Numeric/FACES): 2 - Related Data Allergies/Adverse Reactions: Allergies Allergy/AdvReac Type Severity Reaction Status Date / Time No Known Allergies Allergy Verified 02/20/19 15:06 Home Medications: Home Meds PHENobarbital [Phenobarbital] 97.2 mg PO BEDTIME 12/08/14 [History] Phenytoin 8 ml PO BID 12/12/15 [History] Past Medical History - Past Health History Medical/Surgical History: Denies Medical/Surgical History HEENT History: Reports: Impaired Vision Respiratory History: Reports: None Gastrointestinal History: Reports: Bowel Obstruction, GERD, Hemorrhoids, Inflammatory Bowel Disease Other Gastrointestinal History: ulcerative colitis, colectomy, 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 Genitourinary History: Reports: None Musculoskeletal History: Reports: Arthritis Neurological History: Reports: Seizure Other Neuro History: as a child (15 and 16) and last seizure in 1991-medication adjusted and since have been fine Endocrine/Metabolic History: Reports: None Hematologic History: Reports: Blood Transfusion(s) Oncologic (Cancer) History: Reports: None Dermatologic History: Reports: None, Other (See Below) Other Dermatologic History: vitiligo - Infectious Disease History Infectious Disease History: Reports: C-Difficile, Chicken Pox, Influenza, Measles, Mumps, Shingles - Past Surgical History HEENT Surgical History: Reports: Cataract Surgery GI Surgical History: Reports: Colon, Other (See Below) Other GI Surgeries/Procedures: stoma Neurological Surgical History: Reports: None Musculoskeletal Surgical History: Reports: None Dermatological Surgical History: Reports: Skin Biopsy Social & Family History - Family History Family Medical History: Noncontributory Other Oncologic Family History: DM - mother. [place] - brother at age 39 - Tobacco Use Smoking Status *Q: Current Status Unknown Second Hand Smoke Exposure: No - Caffeine Use Caffeine Use: Reports: Coffee - Recreational Drug Use Recreational Drug Use: No - Living Situation & Occupation Living situation: Reports: , with Spouse Occupation: Employed H&P Review of Systems - Review of Systems: Review Of Systems: See Below General: Reports: No Symptoms. Denies: Fever, Chills, Malaise, Weakness HEENT: Reports: No Symptoms. Denies: Headaches, Sore Throat Pulmonary: Reports: No Symptoms. Denies: Shortness of Breath, Wheezing, Cough, Sputum Cardiovascular: Reports: No Symptoms. Denies: Chest Pain, Palpitations, Dyspnea on Exertion, Edema Gastrointestinal: Reports: Abdominal Pain, Decreased Appetite, Distension, Nausea, Vomiting. Denies: Constipation, Diarrhea Genitourinary: Reports: No Symptoms. Denies: Pain Musculoskeletal: Reports: No Symptoms Skin: Reports: No Symptoms. Denies: Cyanosis Psychiatric: Reports: No Symptoms Neurological: Reports: No Symptoms Hematologic/Lymphatic: Reports: No Symptoms Immunologic: Reports: No Symptoms Exam - Exam Exam: See Below - Vital Signs Vital Signs: Last Vital Signs Temp 98.8 F 02/21/19 04:10 Pulse 69 02/21/19 04:10 Resp 16 02/21/19 04:10 BP 107/77 02/21/19 04:10 Pulse Ox 95 02/21/19 04:10 Weight: 143 lb 8 oz - Exam Quality Assessment: DVT Prophylaxis General: Alert, Oriented, Cooperative. No: Mild Distress HEENT: PERRLA, Hearing Intact, Mucosa Moist & [place], Nares Patent, Normal Nasal Septum, Posterior Pharynx Clear, Conjunctiva Clear, EOMI, EACs Clear, TMs Clear Neck: Supple, Trachea Midline Lungs: Clear to Auscultation, Normal Respiratory Effort Cardiovascular: Regular Rate, Regular Rhythm GI/Abdominal Exam: Soft, No Distention, No Mass, Tender, Abnormal Bowel Sounds (Male) Exam: Deferred Rectal (Males) Exam: Deferred Back Exam: Normal Inspection, Full Range of Motion Extremities: Normal Inspection, Normal Range of Motion, Non-Tender, No Pedal Edema, Normal Capillary Refill Peripheral Pulses: 2+: Radial (L), Radial (R), Dorsalis Pedis (L), Dorsalis Pedis (R) Skin: Warm, Dry, Intact Neurological: Cranial Nerves Intact (grossly ) Neuro Extensive - Mental Status: Alert, Oriented x3, Normal Mood/Affect - Patient Data Lab Results Last 24 hrs: Laboratory Results - last 24 hr 02/20/19 02/20/19 02/20/19 Range/Units 15:14 15:14 15:14 WBC 16.27 H (4.23-9.07) K/mm3 RBC 5.80 (4.63-6.08) M/mm3 Hgb 17.1 D (13.7-17.5) gm/L Hct 49.5 (40.1-51.0) % MCV 85.3 (79.0-92.2) fl MCH 29.5 (25.7-32.2) pg MCHC 34.5 (32.2-35.5) g/dl RDW Std Deviation 39.0 (35.1-43.9) fL Plt Count 517 H (163-337) K/mm3 MPV 8.8 L (9.4-12.3) fl Neut % (Auto) 88.3 H (34.0-67.9) % Lymph % (Auto) 4.9 L (21.8-53.1) % Riley % (Auto) 5.9 (5.3-12.2) % Eos % (Auto) 0.6 L (0.8-7.0) Baso % (Auto) 0.1 (0.1-1.2) % Neut # (Auto) 14.37 H (1.78-5.38) K/mm3 Lymph # (Auto) 0.79 L (1.32-3.57) K/mm3 Riley # (Auto) 0.96 H (0.30-0.82) K/mm3 Eos # (Auto) 0.09 (0.04-0.54) K/mm3 Baso # (Auto) 0.02 (0.01-0.08) K/mm3 Manual Slide Review Abnormal smear Sodium 128 L (136-145) mEq/L Potassium 5.1 (3.5-5.1) mEq/L Chloride 92 L (98-107) mEq/L Carbon Dioxide 22 (21-32) mEq/L Anion Gap 19.1 H (5-15) BUN 75 H D (7-18) mg/dL Creatinine 2.6 H (0.7-1.3) mg/dL Est Cr Clr Drug Dosing 28.35 mL/min Estimated GFR (MDRD) 25 (>60) mL/min BUN/Creatinine Ratio 28.8 H (14-18) Glucose 167 H (80-115) mg/dL Calcium 10.3 H (8.5-10.1) mg/dL Total Bilirubin 0.4 (0.2-1.0) mg/dL AST 31 (15-37) U/L ALT 51 (16-63) U/L Alkaline Phosphatase 168 H (46-116) U/L Total Protein 10.5 H (6.4-8.2) g/dl Albumin 4.9 (3.4-5.0) g/dl Globulin 5.6 gm/dL Albumin/Globulin Ratio 0.9 L (1-2) Lipase 210 (73-393) U/L Result Diagrams: 02/21/19 08:50 02/21/19 08:50 - Problem List (1) Abdominal pain SNOMED Code(s): 30946932 ICD Code: R10.9 - UNSPECIFIED ABDOMINAL PAIN Status: Acute Priority: High Current Visit: Yes Qualifiers: Abdominal location: left lower quadrant Qualified Code(s): R10.32 - Left lower quadrant pain (2) Colitis SNOMED Code(s): 66717695 ICD Code: K52.9 - NONINFECTIVE GASTROENTERITIS AND COLITIS, UNSPECIFIED Status: Chronic Priority: Medium Current Visit: No (3) Crohn's disease SNOMED Code(s): 39945093 ICD Code: K50.90 - CROHN'S DISEASE, UNSPECIFIED, WITHOUT COMPLICATIONS Status: Chronic Priority: Medium Current Visit: No (4) Hemorrhoid SNOMED Code(s): 58648152 ICD Code: K64.9 - UNSPECIFIED HEMORRHOIDS Status: Chronic Priority: Low Current Visit: No Onset Date: 05/18/15 Qualifiers: Hemorrhoid type: unspecified Qualified Code(s): K64.9 - Unspecified hemorrhoids (5) History of colectomy SNOMED Code(s): 782017845 ICD Code: Z90.49 - ACQUIRED ABSENCE OF OTHER SPECIFIED PARTS OF DIGESTIVE TRACT Status: Chronic Priority: Medium Current Visit: No (6) Ileus SNOMED Code(s): 652303290 ICD Code: K56.7 - ILEUS, UNSPECIFIED Status: Acute Priority: High Current Visit: Yes (7) Acute renal injury SNOMED Code(s): 00794590, 21393565 ICD Code: N17.9 - ACUTE KIDNEY FAILURE, UNSPECIFIED Status: Acute Priority: High Current Visit: Yes (8) History of creation of ostomy SNOMED Code(s): 752369334 ICD Code: Z93.9 - ARTIFICIAL OPENING STATUS, UNSPECIFIED Status: Chronic Priority: High Current Visit: Yes Problem List Initiated/Reviewed/Updated: Yes Orders Last 24hrs: Active Orders 24 hr Category Date Time Status Patient Status [ADT] Stat ADT 02/20/19 19:51 Active NG [Gastrointestinal Tube Mgmt] [RC] 10,16,22,04 Care 02/20/19 22:20 Active Notify Provider Consults [RC] ASDIRECTED Care 02/20/19 19:54 Active Up ad Trice [RC] BID Care 02/21/19 01:13 Active Consult to Physician [CONS] Stat Cons 02/20/19 19:53 Active NPO [Nothing Per Oral Diet] [DIET] Diet 02/20/19 Dinner Active CBC WITH AUTO DIFF [HEME] AM Lab 02/21/19 05:11 Ordered CMP [COMPREHENSIVE METABOLIC PN,CMP] [CHEM] AM Lab 02/21/19 05:11 Ordered MAGNESIUM [CHEM] AM Lab 02/21/19 05:11 Ordered PHOSPHORUS [CHEM] AM Lab 02/21/19 05:11 Ordered HYDROmorphone [Dilaudid] Med 02/20/19 21:44 Active 1 mg IVPUSH Q2H PRN Sodium Chloride 0.9% [Normal Saline] 1,000 ml Med 02/20/19 19:00 Active IV ASDIRECTED Sodium Chloride 0.9% [Saline Flush] Med 02/20/19 16:45 Active 10 ml FLUSH ONETIME PRN NG [Nasogastric Orogastric Tube Insertion] [OM.PC] Oth 02/20/19 18:32 Ordered Routine Resuscitation Status Routine Resus Stat 02/20/19 20:38 Ordered Medication Orders Hydromorphone HCl (Dilaudid) 1 mg IVPUSH Q2H PRN PRN Reason: Pain Last Admin: 02/21/19 01:41 Dose: 1 mg Sodium Chloride (Normal Saline) 1,000 mls @ 150 mls/hr IV ASDIRECTED [facility] Last Admin: 02/21/19 02:33 Dose: 150 mls/hr Infusion: 02/21/19 01:11 Dose: 150 mls/hr Admin: 02/20/19 18:30 Dose: 150 mls/hr Sodium Chloride (Saline Flush) 10 ml FLUSH ONETIME PRN PRN Reason: KEEP VEIN OPEN Last Admin: 02/20/19 17:29 Dose: 10 ml Assessment/Plan Comment:: I/P: Acute: Ileus vs. early post-operative bowel obstruction -Reports 6 days of worsening abdominal pain, nausea, vomiting -Recently underwent abdominal surgery at [place] on 02/14/19 -Has chronic stoma, producing green liquid -Denies fever or other infectious symptoms -CT abdomen pelvis in ED: * 1. Mildly prominent small bowel loops of fluid. Findings most likely due to ileus given history of recent surgery. * 2. Other incidental findings as noted above. -NG tube placed in ED with LIS -Dr. Pablo, general surgeon consulted in ED -Recommends continued NG tube and NPO -Requests records from the [facility] -Recommends IV hydration with output monitoring -Requests acute abdomen x-ray series -NPO for now -Ambulate -WBC 16.27-->5.15 Hyponatremia, improving -Sodium 128-->133 -1L NS given in ND -Fluids as ordered -Asymptomatic -Monitor labs Acute renal injury, improving -BUN 75-->60 -Creatinine 2.6-->1.4 -GFR 25-->51 -IV fluids as ordered -2/2 dehydration from poor intake Chronic: prior bowel obstruction GERD hemorrhoids IBD ulcerative colitis colectomy arthritis seizures prior C. difficile infection Plan: Admit to medical floor He is ambulatory so hold off PT/OT for now Other orders as indicated above Routine AM labs DVT prophylaxis: Heparin Home medications as ordered Obtain old records from the [facility] Code status: Full code; PCP: Dr. Young
[2019-02-21] MEDS ORDERED: Ondansetron 4 MG/2 ML SDV IV PRN (07:19)
[2019-02-21] MEDS ORDERED: Acetaminophen 325 MG Tab PO PRN (07:19)
[2019-02-21] MEDS ORDERED: Acetaminophen/HYDROcodone 325-5 MG Tab PO PRN (07:19)
--- NOTE | 2019-02-21 09:33 | PCM.SN ---
- Free Text/Narrative Note: 02/21/19 -[id number] Lab draw times 1 left antecubital per 1 attempt. Bonnie
[2019-02-21] MEDS: PHENYTOIN PO SCH ×2 (09:45→21:37)
--- NOTE | 2019-02-21 13:09 | PCM.CONS ---
H&P History of Present Illness - General Date of Service: 02/21/19 Admit Problem/Dx: Admission Diagnosis/Problem Admission Diagnosis/Problem Dehydration Source of Information: Patient, Old Records History Limitations: Reports: No Limitations - History of Present Illness Initial Comments - Free Text/Narative: 64 yo male, admitted last night on the hospitalist service for ileus. He has a complicated abdominal surgical history that wasn't quite clear on patient history taking. Patient is poor historian. Patient notes h/o inflammatory bowel disease (Ulcerative colitis?), s/p total abdominal colectomy and J-pouch from a few years ago, had a loop ileostomy that had been reserved, but had another ileostomy (?) performed a few years ago, underwent recent ostomy revision (due to tissue "hyperplasia") about 7 days ago (14Feb2019) at the [facility]. He was admitted for one night, discharged home the following day. Two days after surgery, patient reported feeling unwell (fatigue, weakness) , and this was followed a couple of days later by worsening abdominal pain, nausea/emesis. He started having bilious vomiting yesterday. The patient's notes that he did have a bowel obstruction some time after his J-pouch surgery a few years ago, which required an NG tube. Unclear if an operation was required. In the ER, he underwent a CT scan that showed dilated loops of fluid-filled bowel, consistent with ileus. An NG tube was inserted, with over 1 L of bilious output since placement. For abdominal pain, he did received a dose of Dilaudid 1 mg IV overnight. Today, he reports overall improvement in symptoms with abdominal pain and resolution fo nausea/emesis. In obtaining further history, patient notes a h/o DVT a few years ago, requiring anticoagulation for a few months. Bilateral Lower Abdomen Pain Score (Numeric/FACES): 2 - Related Data Allergies/Adverse Reactions: Allergies Allergy/AdvReac Type Severity Reaction Status Date / Time No Known Allergies Allergy Verified 02/20/19 15:06 Home Medications: Home Meds PHENobarbital [Phenobarbital] 97.2 mg PO BEDTIME 12/08/14 [History] Phenytoin 8 ml PO BID 12/12/15 [History] Past Medical History - Past Health History Medical/Surgical History: Denies Medical/Surgical History HEENT History: Reports: Impaired Vision Respiratory History: Reports: None Gastrointestinal History: Reports: Bowel Obstruction, GERD, Hemorrhoids, Inflammatory Bowel Disease Other Gastrointestinal History: ulcerative colitis, colectomy, 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 Genitourinary History: Reports: None Musculoskeletal History: Reports: Arthritis Neurological History: Reports: Seizure Other Neuro History: as a child (15 and 16) and last seizure in 1991-medication adjusted and since have been fine Endocrine/Metabolic History: Reports: None Hematologic History: Reports: Blood Transfusion(s) Oncologic (Cancer) History: Reports: None Dermatologic History: Reports: None, Other (See Below) Other Dermatologic History: vitiligo - Infectious Disease History Infectious Disease History: Reports: C-Difficile, Chicken Pox, Influenza, Measles, Mumps, Shingles - Past Surgical History HEENT Surgical History: Reports: Cataract Surgery GI Surgical History: Reports: Colon, Other (See Below) Other GI Surgeries/Procedures: stoma Neurological Surgical History: Reports: None Musculoskeletal Surgical History: Reports: None Dermatological Surgical History: Reports: Skin Biopsy Social & Family History - Family History Family Medical History: Noncontributory Other Oncologic Family History: DM - mother. [place] - brother at age 39 - Tobacco Use Smoking Status *Q: Current Status Unknown Second Hand Smoke Exposure: No - Caffeine Use Caffeine Use: Reports: Coffee - Recreational Drug Use Recreational Drug Use: No - Living Situation & Occupation Living situation: Reports: (Lives in [place], [place]), with Spouse Occupation: Employed H&P Review of Systems - Review of Systems: Review Of Systems: ROS reveals no pertinent complaints other than HPI. Exam - Exam Exam: See Below - Vital Signs Vital Signs: Last Vital Signs Temp 37.1 C 02/21/19 12:02 Pulse 70 02/21/19 12:02 Resp 15 02/21/19 12:02 BP 132/89 02/21/19 12:02 Pulse Ox 78 L 02/21/19 07:39 Weight: 65.091 kg - Exam General: Alert, Oriented, Cooperative GI/Abdominal Exam: Soft, Non-Tender, Other (LEFT abdominal ostomy pink, patent, with brown liquid stool and air in bag.) Extremities: Normal Inspection Neuro Extensive - Mental Status: Alert, Oriented x3, Normal Mood/Affect - Patient Data Lab Results Last 24 hrs: Laboratory Results - last 24 hr 05/14/19 05/14/19 05/14/19 Range/Units 15:14 15:14 15:14 WBC 16.27 H (4.23-9.07) K/mm3 RBC 5.80 (4.63-6.08) M/mm3 Hgb 17.1 D (13.7-17.5) gm/L Hct 49.5 (40.1-51.0) % MCV 85.3 (79.0-92.2) fl MCH 29.5 (25.7-32.2) pg MCHC 34.5 (32.2-35.5) g/dl RDW Std Deviation 39.0 (35.1-43.9) fL Plt Count 517 H (163-337) K/mm3 MPV 8.8 L (9.4-12.3) fl Neut % (Auto) 88.3 H (34.0-67.9) % Lymph % (Auto) 4.9 L (21.8-53.1) % [place] % (Auto) 5.9 (5.3-12.2) % Eos % (Auto) 0.6 L (0.8-7.0) Baso % (Auto) 0.1 (0.1-1.2) % Neut # (Auto) 14.37 H (1.78-5.38) K/mm3 Lymph # (Auto) 0.79 L (1.32-3.57) K/mm3 [place] # (Auto) 0.96 H (0.30-0.82) K/mm3 Eos # (Auto) 0.09 (0.04-0.54) K/mm3 Baso # (Auto) 0.02 (0.01-0.08) K/mm3 Manual Slide Review Abnormal smear Sodium 128 L (136-145) mEq/L Potassium 5.1 (3.5-5.1) mEq/L Chloride 92 L (98-107) mEq/L Carbon Dioxide 22 (21-32) mEq/L Anion Gap 19.1 H (5-15) BUN 75 H D (7-18) mg/dL Creatinine 2.6 H (0.7-1.3) mg/dL Est Cr Clr Drug Dosing 28.35 mL/min Estimated GFR (MDRD) 25 (>60) mL/min BUN/Creatinine Ratio 28.8 H (14-18) Glucose 167 H (80-115) mg/dL POC Glucose (80-115) mg/dL Calcium 10.3 H (8.5-10.1) mg/dL Phosphorus (2.6-4.7) mg/dL Magnesium (1.8-2.4) mg/dl Total Bilirubin 0.4 (0.2-1.0) mg/dL AST 31 (15-37) U/L ALT 51 (16-63) U/L Alkaline Phosphatase 168 H (46-116) U/L Total Protein 10.5 H (6.4-8.2) g/dl Albumin 4.9 (3.4-5.0) g/dl Globulin 5.6 gm/dL Albumin/Globulin Ratio 0.9 L (1-2) Lipase 210 (73-393) U/L 02/21/19 02/21/19 02/21/19 Range/Units 06:39 08:50 08:50 WBC 5.15 (4.23-9.07) K/mm3 RBC 4.70 (4.63-6.08) M/mm3 Hgb 13.9 D (13.7-17.5) gm/L Hct 41.0 (40.1-51.0) % MCV 87.2 (79.0-92.2) fl MCH 29.6 (25.7-32.2) pg MCHC 33.9 (32.2-35.5) g/dl RDW Std Deviation 39.1 (35.1-43.9) fL Plt Count 303 (163-337) K/mm3 MPV 8.8 L (9.4-12.3) fl Neut % (Auto) 72.1 H (34.0-67.9) % Lymph % (Auto) 11.3 L (21.8-53.1) % [place] % (Auto) 15.0 H (5.3-12.2) % Eos % (Auto) 1.4 (0.8-7.0) Baso % (Auto) 0.2 (0.1-1.2) % Neut # (Auto) 3.72 (1.78-5.38) K/mm3 Lymph # (Auto) 0.58 L (1.32-3.57) K/mm3 [place] # (Auto) 0.77 (0.30-0.82) K/mm3 Eos # (Auto) 0.07 (0.04-0.54) K/mm3 Baso # (Auto) 0.01 (0.01-0.08) K/mm3 Manual Slide Review Sodium 133 L (136-145) mEq/L Potassium 5.3 H (3.5-5.1) mEq/L Chloride 102 (98-107) mEq/L Carbon Dioxide 23 (21-32) mEq/L Anion Gap 13.3 (5-15) BUN 60 H (7-18) mg/dL Creatinine 1.4 H (0.7-1.3) mg/dL Est Cr Clr Drug Dosing 50.37 mL/min Estimated GFR (MDRD) 51 (>60) mL/min BUN/Creatinine Ratio 42.9 H (14-18) Glucose 111 (80-115) mg/dL POC Glucose 105 (80-115) mg/dL Calcium 8.6 D (8.5-10.1) mg/dL Phosphorus 3.8 (2.6-4.7) mg/dL Magnesium 2.0 (1.8-2.4) mg/dl Total Bilirubin 0.4 (0.2-1.0) mg/dL AST 19 (15-37) U/L ALT 35 (16-63) U/L Alkaline Phosphatase 128 H (46-116) U/L Total Protein 7.7 (6.4-8.2) g/dl Albumin 3.6 (3.4-5.0) g/dl Globulin 4.1 gm/dL Albumin/Globulin Ratio 0.9 L (1-2) Lipase (73-393) U/L 02/21/19 Range/Units 11:01 WBC (4.23-9.07) K/mm3 RBC (4.63-6.08) M/mm3 Hgb (13.7-17.5) gm/L Hct (40.1-51.0) % MCV (79.0-92.2) fl MCH (25.7-32.2) pg MCHC (32.2-35.5) g/dl RDW Std Deviation (35.1-43.9) fL Plt Count (163-337) K/mm3 MPV (9.4-12.3) fl Neut % (Auto) (34.0-67.9) % Lymph % (Auto) (21.8-53.1) % [place] % (Auto) (5.3-12.2) % Eos % (Auto) (0.8-7.0) Baso % (Auto) (0.1-1.2) % Neut # (Auto) (1.78-5.38) K/mm3 Lymph # (Auto) (1.32-3.57) K/mm3 [place] # (Auto) (0.30-0.82) K/mm3 Eos # (Auto) (0.04-0.54) K/mm3 Baso # (Auto) (0.01-0.08) K/mm3 Manual Slide Review Sodium (136-145) mEq/L Potassium (3.5-5.1) mEq/L Chloride (98-107) mEq/L Carbon Dioxide (21-32) mEq/L Anion Gap (5-15) BUN (7-18) mg/dL Creatinine (0.7-1.3) mg/dL Est Cr Clr Drug Dosing mL/min Estimated GFR (MDRD) (>60) mL/min BUN/Creatinine Ratio (14-18) Glucose (80-115) mg/dL POC Glucose 110 (80-115) mg/dL Calcium (8.5-10.1) mg/dL Phosphorus (2.6-4.7) mg/dL Magnesium (1.8-2.4) mg/dl Total Bilirubin (0.2-1.0) mg/dL AST (15-37) U/L ALT (16-63) U/L Alkaline Phosphatase (46-116) U/L Total Protein (6.4-8.2) g/dl Albumin (3.4-5.0) g/dl Globulin gm/dL Albumin/Globulin Ratio (1-2) Lipase (73-393) U/L Result Diagrams: 02/21/19 08:50 02/21/19 08:50 Imaging Impressions Last 24 hrs: CT abdomen and pelvis Technique: Multiple axial sections were obtained from above the dome of the diaphragm inferiorly through the pubic symphysis. Oral contrast has been given. No IV contrast was utilized. Comparison: Previous CT abdomen and pelvis exam of 01/01/18. Findings: Previous ostomy is noted. Soft tissue air is noted within the subcutaneous tissues around the ostomy site compatible with recent surgery. Small portion of the visualized lung bases shows nothing acute. Noncontrast appearance of the liver appears within normal limits. Noncontrast spleen also appears within normal limits. Increased density compatible with gallstones are felt to be present within the gallbladder. Adrenal glands show no nodule. Pancreas shows no discrete abnormality. Kidneys show no abnormal calcifications or hydronephrosis. Aorta shows no aneurysm. No retroperitoneal adenopathy or mesenteric abnormalities are seen. Small bowel appears mildly dilated containing fluid. Surgical anastomotic sutures are seen in the region of the rectosigmoid junction. Impression: 1. Mildly prominent small bowel loops of fluid. Findings most likely due to ileus given the history of recent surgery. 2. Other incidental findings as noted above. Diagnostic code #3 Dictated by: Tanner Ocampo MD 02/20/19 at 1743 Consult PN Assessment/Plan Procedures: Procedures ASSAY OF LIPASE (09/22/17) ASSAY OF MAGNESIUM (12/26/17) ASSAY OF NATRIURETIC PEPTIDE (12/26/17) ASSAY OF PHOSPHORUS (02/28/15) ASSAY OF TROPONIN QUANT (12/26/17) C DIFF AMPLIFIED PROBE (09/22/17) C-REACTIVE PROTEIN (12/26/17) COMPLETE CBC W/AUTO DIFF WBC (01/01/18) COMPREHEN METABOLIC PANEL (01/01/18) CREATINE MB FRACTION (12/26/17) CT ABD & PELVIS W/O CONTRAST (01/01/18) ELECTROCARDIOGRAM TRACING (12/26/17) EMERGENCY DEPT VISIT (10/16/18) EMERGENCY DEPT VISIT (01/01/18) EMERGENCY DEPT VISIT (12/26/17) EMERGENCY DEPT VISIT (09/09/16) EMERGENCY DEPT VISIT (05/18/15) EMERGENCY DEPT VISIT (03/01/15) EMERGENCY DEPT VISIT (02/14/15) EXTREMITY STUDY (02/14/15) HYDRATE IV INFUSION ADD-ON (01/01/18) HYDRATION IV INFUSION INIT (02/14/15) IMMUNIZATION ADMIN (09/09/16) INFLUENZA ASSAY W/OPTIC (09/22/17) LEUKOCYTE ASSESSMENT FECAL (09/22/17) METABOLIC PANEL TOTAL CA (09/22/17) PROTHROMBIN TIME (12/26/17) REMOVE INT/EXT HEM 1 GROUP (05/21/15) ROTAVIRUS AG IA (09/22/17) ROUTINE VENIPUNCTURE (01/01/18) RPR F/E/E/N/L/M 2.5 CM/< (10/16/18) RPR S/N/AX/GEN/TRNK 2.5CM/< (09/09/16) TDAP VACCINE 7 YRS/> IM (09/09/16) THER/PROPH/DIAG INJ IV PUSH (01/01/18) THER/PROPH/DIAG INJ SC/IM (02/14/15) THER/PROPH/DIAG IV INF INIT (12/26/17) THROMBOPLASTIN TIME PARTIAL (12/26/17) TISSUE EXAM BY PATHOLOGIST (05/21/15) TX/PRO/DX INJ NEW DRUG ADDON (01/01/18) TX/PRO/DX INJ SAME DRUG FRATERNITY ADVISER (01/01/18) URINALYSIS AUTO W/SCOPE (01/01/18) X-RAY EXAM CHEST 1 VIEW (12/26/17) (1) Ileus SNOMED Code(s): 756487168 Code(s): K56.7 - ILEUS, UNSPECIFIED Priority: High Current Visit: Yes Problem List Initiated/Reviewed/Updated: Yes Plan: 64 yo male, h/o multiple prior abdominal surgeries, including colectomy, J-pouch , ileostomy, with recent ostomy revision ([id number]) at the [facility], presents with ileus vs early post-op SBO, HD#1. Improvement in symptoms since NG tube placement. Abdominal exam benign. Resolution of leukocytosis (16k on admission last night, now down to 5k). CT scan images and radiologist report were reviewed. Dilated loops of fluid- filled bowel. No obvious transition point. Oral contrast was given. An abdominal X-ray was obtained to see if the contrast had transited through the bowel, but no contrast could be seen on X-ray (either sucked up through NG or had already passed through GI tract). - Continue NG tube for proximal decompression. - IV fluids. - Closely monitor UOP. - Daily labs. - h/o DVT (per patient). Recommend VTE chemoprophylaxis (heparin 5000 units TID) . - Will obtain records from [facility] to further clarify the patient's medical/ surgical history. Appreciate hospitalist's primary management of patient. Surgery will continue to follow. Gil Pepper M.D ([place])., F.A.C.S. General Surgery
--- NOTE | 2019-02-21 14:16 | CR ---
Abdomen: Upright view of the abdomen was obtained. Comparison: Prior CT abdomen and pelvis exam of 02/20/19 and abdominal series of 12/12/15. Nasogastric tube is seen. Tip lies within the stomach. Several loops of slightly prominent small bowel with air-fluid levels are seen within the mid and right lower abdomen. Surgical anastomotic sutures are seen within the pelvis. Minimal degenerative change is noted within the spine. Impression: 1. Several loops of slightly prominent small bowel as noted above. 2. Nasogastric tube is seen with tip lying within the stomach. 3. Other incidental findings. Diagnostic code #3
[2019-02-21] MEDS: Heparin Sodium 5,000 Units/ML Vial SUBCUT SCH ×2 (14:47→21:37)
[2019-02-21] MEDS ORDERED: PHENobarbital 32.4 MG Tab PO SCH ×2 (18:00→21:00)
[2019-02-22] MEDS: Sodium Chloride 0.9% 1,000 ML IV SCH ×3 (03:39→18:12)
--- NOTE | 2019-02-22 06:28 | PCM.PN ---
- General Info Date of Service: 02/22/19 Admission Dx/Problem (Free Text): Admission Diagnosis/Problem Admission Diagnosis/Problem Dehydration Subjective Update: In to see Gene. He is lying in bed. NG tube remains in place with very much decreased output. His ostomy output has greatly increased. Discussed patient with Dr. Pablo. He would like to see the NG tube remain in until tomorrow and then advance diet. He has no other concerns. No nursing concerns. Hopeful to be able to advance diet tomorrow. Functional Status: Reports: Pain Controlled, Tolerating Diet, Ambulating, Urinating. Denies: New Symptoms - Review of Systems General: Reports: No Symptoms. Denies: Fever, Weakness, Fatigue, Malaise, Chills HEENT: Reports: No Symptoms. Denies: Headaches, Sore Throat Pulmonary: Reports: No Symptoms. Denies: Shortness of Breath, Pleuritic Chest Pain, Cough, Sputum, Wheezing Cardiovascular: Reports: No Symptoms. Denies: Chest Pain, Palpitations, Edema Gastrointestinal: Reports: No Symptoms, Other (Ostomy in abdomen ). Denies: Abdominal Pain, Constipation, Diarrhea, Nausea, Vomiting Genitourinary: Reports: No Symptoms. Denies: Pain Musculoskeletal: Reports: No Symptoms Skin: Reports: No Symptoms. Denies: Cyanosis Neurological: Reports: No Symptoms. Denies: Confusion Psychiatric: Reports: No Symptoms - Patient Data Vitals - Most Recent: Last Vital Signs Temp 98.1 F 02/22/19 03:32 Pulse 74 02/22/19 03:32 Resp 18 02/22/19 03:32 BP 108/87 02/22/19 03:32 Pulse Ox 96 02/22/19 03:32 Weight - Most Recent: 144 lb 8 oz I&O - Last 24 Hours: Intake & Output 02/21/19 02/21/19 02/22/19 14:59 22:59 06:59 Intake Total 1730 1706 Output Total 1450 1600 Balance 280 106 Lab Results Last 24 Hours: Laboratory Results - last 24 hr 02/21/19 02/21/19 02/21/19 Range/Units 06:39 08:50 08:50 WBC 5.15 (4.23-9.07) K/mm3 RBC 4.70 (4.63-6.08) M/mm3 Hgb 13.9 D (13.7-17.5) gm/L Hct 41.0 (40.1-51.0) % MCV 87.2 (79.0-92.2) fl MCH 29.6 (25.7-32.2) pg MCHC 33.9 (32.2-35.5) g/dl RDW Std Deviation 39.1 (35.1-43.9) fL Plt Count 303 (163-337) K/mm3 MPV 8.8 L (9.4-12.3) fl Neut % (Auto) 72.1 H (34.0-67.9) % Lymph % (Auto) 11.3 L (21.8-53.1) % [place] % (Auto) 15.0 H (5.3-12.2) % Eos % (Auto) 1.4 (0.8-7.0) Baso % (Auto) 0.2 (0.1-1.2) % Neut # (Auto) 3.72 (1.78-5.38) K/mm3 Lymph # (Auto) 0.58 L (1.32-3.57) K/mm3 [place] # (Auto) 0.77 (0.30-0.82) K/mm3 Eos # (Auto) 0.07 (0.04-0.54) K/mm3 Baso # (Auto) 0.01 (0.01-0.08) K/mm3 Sodium 133 L (136-145) mEq/L Potassium 5.3 H (3.5-5.1) mEq/L Chloride 102 (98-107) mEq/L Carbon Dioxide 23 (21-32) mEq/L Anion Gap 13.3 (5-15) BUN 60 H (7-18) mg/dL Creatinine 1.4 H (0.7-1.3) mg/dL Est Cr Clr Drug Dosing 50.37 mL/min Estimated GFR (MDRD) 51 (>60) mL/min BUN/Creatinine Ratio 42.9 H (14-18) Glucose 111 (80-115) mg/dL POC Glucose 105 (80-115) mg/dL Calcium 8.6 D (8.5-10.1) mg/dL Phosphorus 3.8 (2.6-4.7) mg/dL Magnesium 2.0 (1.8-2.4) mg/dl Total Bilirubin 0.4 (0.2-1.0) mg/dL AST 19 (15-37) U/L ALT 35 (16-63) U/L Alkaline Phosphatase 128 H (46-116) U/L Total Protein 7.7 (6.4-8.2) g/dl Albumin 3.6 (3.4-5.0) g/dl Globulin 4.1 gm/dL Albumin/Globulin Ratio 0.9 L (1-2) 02/21/19 02/21/19 02/21/19 Range/Units 11:01 17:22 23:29 WBC (4.23-9.07) K/mm3 RBC (4.63-6.08) M/mm3 Hgb (13.7-17.5) gm/L Hct (40.1-51.0) % MCV (79.0-92.2) fl MCH (25.7-32.2) pg MCHC (32.2-35.5) g/dl RDW Std Deviation (35.1-43.9) fL Plt Count (163-337) K/mm3 MPV (9.4-12.3) fl Neut % (Auto) (34.0-67.9) % Lymph % (Auto) (21.8-53.1) % [place] % (Auto) (5.3-12.2) % Eos % (Auto) (0.8-7.0) Baso % (Auto) (0.1-1.2) % Neut # (Auto) (1.78-5.38) K/mm3 Lymph # (Auto) (1.32-3.57) K/mm3 [place] # (Auto) (0.30-0.82) K/mm3 Eos # (Auto) (0.04-0.54) K/mm3 Baso # (Auto) (0.01-0.08) K/mm3 Sodium (136-145) mEq/L Potassium (3.5-5.1) mEq/L Chloride (98-107) mEq/L Carbon Dioxide (21-32) mEq/L Anion Gap (5-15) BUN (7-18) mg/dL Creatinine (0.7-1.3) mg/dL Est Cr Clr Drug Dosing mL/min Estimated GFR (MDRD) (>60) mL/min BUN/Creatinine Ratio (14-18) Glucose (80-115) mg/dL POC Glucose 110 99 110 (80-115) mg/dL Calcium (8.5-10.1) mg/dL Phosphorus (2.6-4.7) mg/dL Magnesium (1.8-2.4) mg/dl Total Bilirubin (0.2-1.0) mg/dL AST (15-37) U/L ALT (16-63) U/L Alkaline Phosphatase (46-116) U/L Total Protein (6.4-8.2) g/dl Albumin (3.4-5.0) g/dl Globulin gm/dL Albumin/Globulin Ratio (1-2) / Range/Units 06:07 WBC (4.23-9.07) K/mm3 RBC (4.63-6.08) M/mm3 Hgb (13.7-17.5) gm/L Hct (40.1-51.0) % MCV (79.0-92.2) fl MCH (25.7-32.2) pg MCHC (32.2-35.5) g/dl RDW Std Deviation (35.1-43.9) fL Plt Count (163-337) K/mm3 MPV (9.4-12.3) fl Neut % (Auto) (34.0-67.9) % Lymph % (Auto) (21.8-53.1) % [place] % (Auto) (5.3-12.2) % Eos % (Auto) (0.8-7.0) Baso % (Auto) (0.1-1.2) % Neut # (Auto) (1.78-5.38) K/mm3 Lymph # (Auto) (1.32-3.57) K/mm3 [place] # (Auto) (0.30-0.82) K/mm3 Eos # (Auto) (0.04-0.54) K/mm3 Baso # (Auto) (0.01-0.08) K/mm3 Sodium (136-145) mEq/L Potassium (3.5-5.1) mEq/L Chloride (98-107) mEq/L Carbon Dioxide (21-32) mEq/L Anion Gap (5-15) BUN (7-18) mg/dL Creatinine (0.7-1.3) mg/dL Est Cr Clr Drug Dosing mL/min Estimated GFR (MDRD) (>60) mL/min BUN/Creatinine Ratio (14-18) Glucose (80-115) mg/dL POC Glucose 93 (80-115) mg/dL Calcium (8.5-10.1) mg/dL Phosphorus (2.6-4.7) mg/dL Magnesium (1.8-2.4) mg/dl Total Bilirubin (0.2-1.0) mg/dL AST (15-37) U/L ALT (16-63) U/L Alkaline Phosphatase (46-116) U/L Total Protein (6.4-8.2) g/dl Albumin (3.4-5.0) g/dl Globulin gm/dL Albumin/Globulin Ratio (1-2) Med Orders - Current: Current Medications Acetaminophen (Tylenol) 650 mg PO Q4H PRN PRN Reason: Pain (Mild 1-3)/fever Hydrocodone Bitart/Acetaminophen ([place] 325-5 Mg) 1 tab PO Q4H PRN PRN Reason: Pain (moderate 4-6) Heparin Sodium (Porcine) (Heparin Sodium) 5,000 units SUBCUT Q8H [facility] Last Admin: 02/21/19 21:37 Dose: 5,000 units Hydromorphone HCl (Dilaudid) 1 mg IVPUSH Q2H PRN PRN Reason: Pain Last Admin: 02/21/19 13:18 Dose: 1 mg Sodium Chloride (Normal Saline) 1,000 mls @ 150 mls/hr IV ASDIRECTED [facility] Last Admin: 02/22/19 03:39 Dose: 150 mls/hr Ondansetron HCl (Zofran) 4 mg IV Q6H PRN PRN Reason: Nausea/Vomiting Phenytoin 25 Mg/1 Ml Susp Ml 237 Ml BottlePtom 0 each PO BID [facility] Last Admin: 02/21/19 21:37 Dose: 1 each Phenobarbital (Phenobarbital) 97.2 mg PO BEDTIME [facility] Last Admin: 02/21/19 17:55 Dose: 97.2 mg Sodium Chloride (Saline Flush) 10 ml FLUSH ONETIME PRN PRN Reason: KEEP VEIN OPEN Last Admin: 02/20/19 17:29 Dose: 10 ml Discontinued Medications Diatrizoate Meglum/Diatrizoate Sod (Gastrografin 37%) 60 ml PO ONETIME ONE Stop: 02/20/19 16:45 Last Admin: 02/21/19 05:42 Dose: Not Given Diatrizoate Meglum/Diatrizoate Sod (Gastrografin 37%) 60 ml PO ONETIME ONE Stop: 02/20/19 17:12 Last Admin: 02/20/19 17:23 Dose: 60 ml Hydromorphone HCl (Dilaudid) 1 mg IVPUSH ONETIME ONE Stop: 02/20/19 16:05 Last Admin: 02/20/19 16:12 Dose: 1 mg Hydromorphone HCl (Dilaudid) 1 mg IVPUSH ONETIME ONE Stop: 02/20/19 18:18 Last Admin: 02/20/19 18:32 Dose: 1 mg Sodium Chloride (Normal Saline) 1,000 mls @ 999 mls/hr IV ASDIRECTED [facility] Last Admin: 02/20/19 16:11 Dose: 999 mls/hr Sodium Chloride (Normal Saline) 1,000 mls @ 999 mls/hr IV ONETIME ONE Stop: 02/20/19 18:28 Last Admin: 02/20/19 17:29 Dose: 999 mls/hr Sodium Chloride (Normal Saline) 1,000 mls @ 999 mls/hr IV ASDIRECTED [facility] Iohexol (Omnipaque) 75 ml IVPUSH ONETIME ONE Stop: 02/20/19 16:46 Last Admin: 02/21/19 05:42 Dose: Not Given Ondansetron HCl (Zofran) 4 mg IVPUSH ONETIME ONE Stop: 02/20/19 16:06 Last Admin: 02/20/19 16:11 Dose: 4 mg Ondansetron HCl (Zofran) 4 mg IVPUSH ONETIME ONE Stop: 02/20/19 18:18 Last Admin: 02/20/19 18:31 Dose: 4 mg Phenobarbital (Phenobarbital) 97.2 mg PO BEDTIME [facility] - Exam Quality Assessment: DVT Prophylaxis General: Alert, Oriented, Cooperative, No Acute Distress HEENT: Pupils Equal, Pupils Reactive, EOMI, Mucous Membr. Moist/[place] Neck: Supple, Trachea Midline Lungs: Clear to Auscultation, Normal Respiratory Effort Cardiovascular: Regular Rate, Regular Rhythm GI/Abdominal Exam: Normal Bowel Sounds, Soft, Non-Tender, No Distention, No Abnormal Bruit, Other (Ostomy in abdomen) (Male) Exam: Deferred Back Exam: Normal Inspection, Full Range of Motion Extremities: Normal Inspection, Normal Range of Motion, Non-Tender, No Pedal Edema, Normal Capillary Refill Peripheral Pulses: 2+: Radial (L), Radial (R), Dorsalis Pedis (L), Dorsalis Pedis (R) Skin: Warm, Dry, Intact Neurological: No New Focal Deficit Psy/Mental Status: Alert, Normal Affect, Normal Mood - Problem List & Annotations (1) Abdominal pain SNOMED Code(s): 23007557 Code(s): R10.9 - UNSPECIFIED ABDOMINAL PAIN Status: Acute Priority: High Current Visit: Yes Qualifiers: Abdominal location: left lower quadrant Qualified Code(s): R10.32 - Left lower quadrant pain (2) Colitis SNOMED Code(s): 13399059 Code(s): K52.9 - NONINFECTIVE GASTROENTERITIS AND COLITIS, UNSPECIFIED Status: Chronic Priority: Medium Current Visit: No (3) Crohn's disease SNOMED Code(s): 01340506 Code(s): K50.90 - CROHN'S DISEASE, UNSPECIFIED, WITHOUT COMPLICATIONS Status: Chronic Priority: Medium Current Visit: No (4) Hemorrhoid SNOMED Code(s): 08955266 Code(s): K64.9 - UNSPECIFIED HEMORRHOIDS Status: Chronic Priority: Low Current Visit: No Onset Date: 05/18/15 Qualifiers: Hemorrhoid type: unspecified Qualified Code(s): K64.9 - Unspecified hemorrhoids (5) History of colectomy SNOMED Code(s): 488037742 Code(s): Z90.49 - ACQUIRED ABSENCE OF OTHER SPECIFIED PARTS OF DIGESTIVE TRACT Status: Chronic Priority: Medium Current Visit: No (6) Ileus SNOMED Code(s): 168059187 Code(s): K56.7 - ILEUS, UNSPECIFIED Status: Acute Priority: High Current Visit: Yes (7) Acute renal injury SNOMED Code(s): 81632937, 31366913 Code(s): N17.9 - ACUTE KIDNEY FAILURE, UNSPECIFIED Status: Acute Priority : High Current Visit: Yes (8) History of creation of ostomy SNOMED Code(s): 661555295 Code(s): Z93.9 - ARTIFICIAL OPENING STATUS, UNSPECIFIED Status: Chronic Priority: High Current Visit: Yes - Problem List Review Problem List Initiated/Reviewed/Updated: Yes - My Orders Last 24 Hours: My Active Orders 02/21/19 07:19 Height and Weight [RC] 04 Intake and Output [RC] 04,16 Oxygen Therapy [RC] PRN VTE/DVT Education [RC] DAILY Vital Signs [RC] Q4HR Consult to Spiritual Care [CONS] Routine Acetaminophen [Tylenol] 650 mg PO Q4H PRN Acetaminophen/HYDROcodone [[place] 325-5 MG] 1 tab PO Q4H PRN Ondansetron [Zofran] 4 mg IV Q6H PRN 02/21/19 09:30 Patient's Own Medication [Ptom] 0 each PO BID 02/21/19 13:39 Blood Glucose Check, Bedside [RC] Q6HR 02/21/19 14:30 Heparin Sodium 5,000 units SUBCUT Q8H 02/21/19 18:00 PHENobarbital 97.2 mg PO BEDTIME 02/22/19 05:49 BASIC METABOLIC PANEL,BMP [CHEM] AM CBC WITH AUTO DIFF [HEME] AM CRP [C-REACTIVE PROTEIN] [CHEM] AM MAGNESIUM [CHEM] AM 02/22/19 Breakfast NPO [Nothing Per Oral Diet] [DIET] 02/23/19 05:11 BASIC METABOLIC PANEL,BMP [CHEM] AM CBC WITH AUTO DIFF [HEME] AM CRP [C-REACTIVE PROTEIN] [CHEM] AM MAGNESIUM [CHEM] AM 02/24/19 05:11 BASIC METABOLIC PANEL,BMP [CHEM] AM CBC WITH AUTO DIFF [HEME] AM CRP [C-REACTIVE PROTEIN] [CHEM] AM MAGNESIUM [CHEM] AM 02/25/19 05:11 BASIC METABOLIC PANEL,BMP [CHEM] AM CBC WITH AUTO DIFF [HEME] AM CRP [C-REACTIVE PROTEIN] [CHEM] AM MAGNESIUM [CHEM] AM - Plan Plan:: I/P: Acute: Ileus vs. early post-operative bowel obstruction -Reports 6 days of worsening abdominal pain, nausea, vomiting -Recently underwent abdominal surgery at [facility] on 02/14/19 -Has chronic stoma, producing green liquid -Denies fever or other infectious symptoms -CT abdomen pelvis in ED: * 1. Mildly prominent small bowel loops of fluid. Findings most likely due to ileus given history of recent surgery. * 2. Other incidental findings as noted above. -NG tube placed in ED with LIS -Dr. Pablo, general surgeon consulted in ED -Recommends continued NG tube and NPO -Requests records from the [facility] -Recommends IV hydration with output monitoring -Requests acute abdomen x-ray series -NPO for now -Repeat Abdominal X-ray shows several loops of slightly prominent small bowel. -Ambulate -WBC 16.27-->5.15-->3.7 -CRP 2.8 Resolved: S/P Acute renal injury -BUN 75-->60-->37 -Creatinine 2.6-->1.4-->1.0 -GFR 25-->51-->greater than 60 -IV fluids as ordered -2/2 dehydration from poor intake S/P Hyponatremia -Sodium 128-->133-->138 -1L NS given in ND -Fluids as ordered -Asymptomatic -Monitor labs Chronic: prior bowel obstruction GERD hemorrhoids IBD ulcerative colitis colectomy arthritis seizures prior C. difficile infection Plan: Admit to medical floor He is ambulatory so hold off PT/OT for now Other orders as indicated above Routine AM labs DVT prophylaxis: Heparin Home medications as ordered Obtain old records from the [facility] Code status: Full code; PCP: Dr. Young
[2019-02-22] MEDS ORDERED: Magnesium Sulfate/Water 2 GM in Premix Bag 1 BAG IV ONE (06:47)
[2019-02-22] MEDS: Heparin Sodium 5,000 Units/ML Vial SUBCUT SCH ×3 (06:48→21:51)
[2019-02-22] MEDS: PHENYTOIN PO SCH ×2 (08:35→20:34)
--- NOTE | 2019-02-22 10:33 | PCM.CONSN ---
- General Info Date of Service: 02/22/19 Admission Dx/Problem (Free Text): Admission Diagnosis/Problem Admission Diagnosis/Problem Dehydration and ileus vs early post-op bowel obstruction Subjective Update: Overnight, no acute events. Patient reports resolution of abdominal pain. No n/v. Has increased output into ostomy. - Patient Data Vitals - Most Recent: Last Vital Signs Temp 36.6 C 02/22/19 07:24 Pulse 73 02/22/19 07:24 Resp 15 02/22/19 07:24 BP 110/73 02/22/19 07:24 Pulse Ox 99 02/22/19 07:24 Weight - Most Recent: 65.544 kg I&O - Last 24 Hours: Intake & Output 02/21/19 02/22/19 02/22/19 22:59 06:59 14:59 Intake Total 1730 1706 Output Total 1450 1600 Balance 280 106 NG output 500 cc since yesterday AM. Lab Results Last 24 Hours: Laboratory Results - last 24 hr 02/21/19 02/21/19 02/21/19 Range/Units 06:39 11:01 17:22 WBC (4.23-9.07) K/mm3 RBC (4.63-6.08) M/mm3 Hgb (13.7-17.5) gm/L Hct (40.1-51.0) % MCV (79.0-92.2) fl MCH (25.7-32.2) pg MCHC (32.2-35.5) g/dl RDW Std Deviation (35.1-43.9) fL Plt Count (163-337) K/mm3 MPV (9.4-12.3) fl Neut % (Auto) (34.0-67.9) % Lymph % (Auto) (21.8-53.1) % [place] % (Auto) (5.3-12.2) % Eos % (Auto) (0.8-7.0) Baso % (Auto) (0.1-1.2) % Neut # (Auto) (1.78-5.38) K/mm3 Lymph # (Auto) (1.32-3.57) K/mm3 [place] # (Auto) (0.30-0.82) K/mm3 Eos # (Auto) (0.04-0.54) K/mm3 Baso # (Auto) (0.01-0.08) K/mm3 Manual Slide Review Sodium (136-145) mEq/L Potassium (3.5-5.1) mEq/L Chloride (98-107) mEq/L Carbon Dioxide (21-32) mEq/L Anion Gap (5-15) BUN (7-18) mg/dL Creatinine (0.7-1.3) mg/dL Est Cr Clr Drug Dosing mL/min Estimated GFR (MDRD) (>60) mL/min BUN/Creatinine Ratio (14-18) Glucose (80-115) mg/dL POC Glucose 105 110 99 (80-115) mg/dL Calcium (8.5-10.1) mg/dL Magnesium (1.8-2.4) mg/dl C-Reactive Protein (<1.0) mg/dL 02/21/19 02/22/19 02/22/19 Range/Units 23:29 05:49 05:49 WBC 3.70 L (4.23-9.07) K/mm3 RBC 3.82 L (4.63-6.08) M/mm3 Hgb 11.4 L D (13.7-17.5) gm/L Hct 33.8 L (40.1-51.0) % MCV 88.5 (79.0-92.2) fl MCH 29.8 (25.7-32.2) pg MCHC 33.7 (32.2-35.5) g/dl RDW Std Deviation 39.3 (35.1-43.9) fL Plt Count 267 (163-337) K/mm3 MPV 8.7 L (9.4-12.3) fl Neut % (Auto) 59.5 (34.0-67.9) % Lymph % (Auto) 18.9 L (21.8-53.1) % [place] % (Auto) 18.9 H (5.3-12.2) % Eos % (Auto) 2.2 (0.8-7.0) Baso % (Auto) 0.5 (0.1-1.2) % Neut # (Auto) 2.20 (1.78-5.38) K/mm3 Lymph # (Auto) 0.70 L (1.32-3.57) K/mm3 [place] # (Auto) 0.70 (0.30-0.82) K/mm3 Eos # (Auto) 0.08 (0.04-0.54) K/mm3 Baso # (Auto) 0.02 (0.01-0.08) K/mm3 Manual Slide Review Abnormal smear Sodium 138 (136-145) mEq/L Potassium 4.1 (3.5-5.1) mEq/L Chloride 106 (98-107) mEq/L Carbon Dioxide 25 (21-32) mEq/L Anion Gap 11.1 (5-15) BUN 37 H (7-18) mg/dL Creatinine 1.0 (0.7-1.3) mg/dL Est Cr Clr Drug Dosing 71.01 mL/min Estimated GFR (MDRD) > 60 (>60) mL/min BUN/Creatinine Ratio 37.0 H (14-18) Glucose 92 (80-115) mg/dL POC Glucose 110 (80-115) mg/dL Calcium 8.2 L (8.5-10.1) mg/dL Magnesium 1.7 L (1.8-2.4) mg/dl C-Reactive Protein 2.8 H* (<1.0) mg/dL 02/22/19 Range/Units 06:07 WBC (4.23-9.07) K/mm3 RBC (4.63-6.08) M/mm3 Hgb (13.7-17.5) gm/L Hct (40.1-51.0) % MCV (79.0-92.2) fl MCH (25.7-32.2) pg MCHC (32.2-35.5) g/dl RDW Std Deviation (35.1-43.9) fL Plt Count (163-337) K/mm3 MPV (9.4-12.3) fl Neut % (Auto) (34.0-67.9) % Lymph % (Auto) (21.8-53.1) % [place] % (Auto) (5.3-12.2) % Eos % (Auto) (0.8-7.0) Baso % (Auto) (0.1-1.2) % Neut # (Auto) (1.78-5.38) K/mm3 Lymph # (Auto) (1.32-3.57) K/mm3 [place] # (Auto) (0.30-0.82) K/mm3 Eos # (Auto) (0.04-0.54) K/mm3 Baso # (Auto) (0.01-0.08) K/mm3 Manual Slide Review Sodium (136-145) mEq/L Potassium (3.5-5.1) mEq/L Chloride (98-107) mEq/L Carbon Dioxide (21-32) mEq/L Anion Gap (5-15) BUN (7-18) mg/dL Creatinine (0.7-1.3) mg/dL Est Cr Clr Drug Dosing mL/min Estimated GFR (MDRD) (>60) mL/min BUN/Creatinine Ratio (14-18) Glucose (80-115) mg/dL POC Glucose 93 (80-115) mg/dL Calcium (8.5-10.1) mg/dL Magnesium (1.8-2.4) mg/dl C-Reactive Protein (<1.0) mg/dL Med Orders - Current: Current Medications Acetaminophen (Tylenol) 650 mg PO Q4H PRN PRN Reason: Pain (Mild 1-3)/fever Hydrocodone Bitart/Acetaminophen ([place] 325-5 Mg) 1 tab PO Q4H PRN PRN Reason: Pain (moderate 4-6) Heparin Sodium (Porcine) (Heparin Sodium) 5,000 units SUBCUT Q8H [facility] Last Admin: 02/22/19 06:48 Dose: 5,000 units Hydromorphone HCl (Dilaudid) 1 mg IVPUSH Q2H PRN PRN Reason: Pain Last Admin: 02/21/19 13:18 Dose: 1 mg Sodium Chloride (Normal Saline) 1,000 mls @ 150 mls/hr IV ASDIRECTED [facility] Last Admin: 02/22/19 10:30 Dose: 150 mls/hr Ondansetron HCl (Zofran) 4 mg IV Q6H PRN PRN Reason: Nausea/Vomiting Phenytoin 25 Mg/1 Ml Susp Ml 237 Ml BottlePtom 0 each PO BID [facility] Last Admin: 02/22/19 08:35 Dose: 1 each Phenobarbital (Phenobarbital) 97.2 mg PO BEDTIME [facility] Last Admin: 02/21/19 17:55 Dose: 97.2 mg Sodium Chloride (Saline Flush) 10 ml FLUSH ONETIME PRN PRN Reason: KEEP VEIN OPEN Last Admin: 02/20/19 17:29 Dose: 10 ml Discontinued Medications Diatrizoate Meglum/Diatrizoate Sod (Gastrografin 37%) 60 ml PO ONETIME ONE Stop: 02/20/19 16:45 Last Admin: 02/21/19 05:42 Dose: Not Given Diatrizoate Meglum/Diatrizoate Sod (Gastrografin 37%) 60 ml PO ONETIME ONE Stop: 02/20/19 17:12 Last Admin: 02/20/19 17:23 Dose: 60 ml Hydromorphone HCl (Dilaudid) 1 mg IVPUSH ONETIME ONE Stop: 02/20/19 16:05 Last Admin: 02/20/19 16:12 Dose: 1 mg Hydromorphone HCl (Dilaudid) 1 mg IVPUSH ONETIME ONE Stop: 02/20/19 18:18 Last Admin: 02/20/19 18:32 Dose: 1 mg Sodium Chloride (Normal Saline) 1,000 mls @ 999 mls/hr IV ASDIRECTED [facility] Last Admin: 02/20/19 16:11 Dose: 999 mls/hr Sodium Chloride (Normal Saline) 1,000 mls @ 999 mls/hr IV ONETIME ONE Stop: 02/20/19 18:28 Last Admin: 02/20/19 17:29 Dose: 999 mls/hr Sodium Chloride (Normal Saline) 1,000 mls @ 999 mls/hr IV ASDIRECTED [facility] Magnesium Sulfate 2 gm/ Premix 50 mls @ 25 mls/hr IV ONETIME ONE Stop: 02/22/19 08:46 Last Admin: 02/22/19 07:05 Dose: 25 mls/hr Iohexol (Omnipaque) 75 ml IVPUSH ONETIME ONE Stop: 02/20/19 16:46 Last Admin: 02/21/19 05:42 Dose: Not Given Ondansetron HCl (Zofran) 4 mg IVPUSH ONETIME ONE Stop: 02/20/19 16:06 Last Admin: 02/20/19 16:11 Dose: 4 mg Ondansetron HCl (Zofran) 4 mg IVPUSH ONETIME ONE Stop: 02/20/19 18:18 Last Admin: 02/20/19 18:31 Dose: 4 mg Phenobarbital (Phenobarbital) 97.2 mg PO BEDTIME [facility] - Exam General: Alert, Oriented, Cooperative HEENT: Other (NG tube in place, with bilious output) GI/Abdominal Exam: Soft, Non-Tender, No Distention, Other (ostomy bag with stool and air. ) Physical Findings Comments:: Anal exam: RIGHT seton in place. Nontender. No fluctuance. Minimal drainage. Consult PN Assessment/Plan Procedures: Procedures ASSAY OF LIPASE (09/22/17) ASSAY OF MAGNESIUM (12/26/17) ASSAY OF NATRIURETIC PEPTIDE (12/26/17) ASSAY OF PHOSPHORUS (02/28/15) ASSAY OF TROPONIN QUANT (12/26/17) C DIFF AMPLIFIED PROBE (09/22/17) C-REACTIVE PROTEIN (12/26/17) COMPLETE CBC W/AUTO DIFF WBC (01/01/18) COMPREHEN METABOLIC PANEL (01/01/18) CREATINE MB FRACTION (12/26/17) CT ABD & PELVIS W/O CONTRAST (01/01/18) ELECTROCARDIOGRAM TRACING (12/26/17) EMERGENCY DEPT VISIT (10/16/18) EMERGENCY DEPT VISIT (01/01/18) EMERGENCY DEPT VISIT (12/26/17) EMERGENCY DEPT VISIT (09/09/16) EMERGENCY DEPT VISIT (05/18/15) EMERGENCY DEPT VISIT (03/01/15) EMERGENCY DEPT VISIT (02/14/15) EXTREMITY STUDY (02/14/15) HYDRATE IV INFUSION ADD-ON (01/01/18) HYDRATION IV INFUSION INIT (02/14/15) IMMUNIZATION ADMIN (09/09/16) INFLUENZA ASSAY W/OPTIC (09/22/17) LEUKOCYTE ASSESSMENT FECAL (09/22/17) METABOLIC PANEL TOTAL CA (09/22/17) PROTHROMBIN TIME (12/26/17) REMOVE INT/EXT HEM 1 GROUP (05/21/15) ROTAVIRUS AG IA (09/22/17) ROUTINE VENIPUNCTURE (01/01/18) RPR F/E/E/N/L/M 2.5 CM/< (10/16/18) RPR S/N/AX/GEN/TRNK 2.5CM/< (09/09/16) TDAP VACCINE 7 YRS/> IM (09/09/16) THER/PROPH/DIAG INJ IV PUSH (01/01/18) THER/PROPH/DIAG INJ SC/IM (02/14/15) THER/PROPH/DIAG IV INF INIT (12/26/17) THROMBOPLASTIN TIME PARTIAL (12/26/17) TISSUE EXAM BY PATHOLOGIST (05/21/15) TX/PRO/DX INJ NEW DRUG ADDON (01/01/18) TX/PRO/DX INJ SAME DRUG SPLICER OPERATOR (01/01/18) URINALYSIS AUTO W/SCOPE (01/01/18) X-RAY EXAM CHEST 1 VIEW (12/26/17) (1) Ileus SNOMED Code(s): 719935478 Code(s): K56.7 - ILEUS, UNSPECIFIED Priority: High Current Visit: Yes Problem List Initiated/Reviewed/Updated: Yes Plan: 64 yo male, h/o multiple prior abdominal surgeries, including colectomy, J-pouch , ileostomy, with recent ostomy revision (14Feb2019) at the [facility], presents with ileus vs early post-op SBO, HD#2. Clinically improving, but NG with continued bilious output. - Continue NG tube for proximal decompression. Consider removal tomorrow if patient continues to do well. - IV fluids. - Closely monitor UOP. - Daily labs. - VTE ppx: heparin Reviewed records from [facility] to further clarify the patient's medical/ surgical history. Based on the records, he underwent ileostomy revision and pouchoscopy on 14Feb2019, performed by Dr. Barbara Meza. 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 This required debridement, seton placement, and eventually a new ileostomy. His diagnosis of possibly Crohn's disease has been discussed at multidisciplinary IBD board on at least 2 occasions at the [facility]. Appreciate hospitalist's primary management of patient. Surgery will continue to follow, but I will turnover the patient's care to my colleague, Dr. Castillo, starting tomorrow morning. I contacted Dr. Malathi Meza, Colorectal Surgeon at [facility], to inform her of the patient's status. Gil Suero" Roxy Pepper, F.A.C.S. General Surgery
[2019-02-22] MEDS: PHENobarbital 32.4 MG Tab PO SCH (18:24)
[2019-02-22] MEDS ORDERED: 50% Dextrose in Water 50 ML Syringe IVPUSH PRN (18:40)
[2019-02-22] MEDS ORDERED: 50% Dextrose in Water 50 ML SDV ONE (18:49)
[2019-02-22] MEDS ORDERED: 50% Dextrose in Water 50 ML SDV IV PRN (18:52)
[2019-02-22] MEDS: Dextrose 5%-0.9% NaCl 1,000 ML IV SCH (18:56)
[2019-02-23] MEDS: Dextrose 5%-0.9% NaCl 1,000 ML IV SCH ×2 (01:20→07:46)
[2019-02-23] MEDS: Heparin Sodium 5,000 Units/ML Vial SUBCUT SCH ×3 (06:26→21:36)
--- NOTE | 2019-02-23 06:46 | PCM.PN ---
- General Info Date of Service: 02/23/19 Admission Dx/Problem (Free Text): Admission Diagnosis/Problem Admission Diagnosis/Problem Dehydration Subjective Update: In to see Gene. He is doing well. Dr. Castillo has seen him as she is taking over for Dr. Pablo. She agrees to removing NG tube and advancing diet. She recommends full liquid diet and advance from there. We will decrease fluids and then stop them if he tolerates full liquids well. He denies any abdominal pain. Hopeful for discharge tomorrow pending continued improvement. Functional Status: Reports: Pain Controlled, Tolerating Diet, Ambulating, Urinating. Denies: New Symptoms - Review of Systems General: Reports: No Symptoms. Denies: Fever, Weakness, Fatigue, Malaise, Chills HEENT: Reports: No Symptoms. Denies: Headaches, Sore Throat Pulmonary: Reports: No Symptoms. Denies: Shortness of Breath, Pleuritic Chest Pain, Cough, Sputum, Wheezing Cardiovascular: Reports: No Symptoms. Denies: Chest Pain, Palpitations, Dyspnea on Exertion, Edema, Lightheadedness Gastrointestinal: Reports: No Symptoms. Denies: Abdominal Pain, Constipation, Diarrhea, Nausea, Vomiting Genitourinary: Reports: No Symptoms. Denies: Pain Musculoskeletal: Reports: No Symptoms Skin: Reports: No Symptoms. Denies: Cyanosis Neurological: Reports: No Symptoms. Denies: Confusion Psychiatric: Reports: No Symptoms - Patient Data Vitals - Most Recent: Last Vital Signs Temp 97.9 F 02/23/19 03:01 Pulse 62 02/23/19 03:01 Resp 26 H 02/23/19 03:01 BP 102/59 L 02/23/19 03:01 Pulse Ox 97 02/23/19 03:01 Weight - Most Recent: 145 lb 11.2 oz I&O - Last 24 Hours: Intake & Output 02/22/19 02/22/19 02/23/19 14:59 22:59 06:59 Intake Total 2140 Output Total 1425 Balance 715 Lab Results Last 24 Hours: Laboratory Results - last 24 hr 02/22/19 02/22/19 02/22/19 Range/Units 05:49 11:44 18:35 WBC (4.23-9.07) K/mm3 RBC (4.63-6.08) M/mm3 Hgb (13.7-17.5) gm/L Hct (40.1-51.0) % MCV (79.0-92.2) fl MCH (25.7-32.2) pg MCHC (32.2-35.5) g/dl RDW Std Deviation (35.1-43.9) fL Plt Count (163-337) K/mm3 MPV (9.4-12.3) fl Neut % (Auto) (34.0-67.9) % Lymph % (Auto) (21.8-53.1) % [place] % (Auto) (5.3-12.2) % Eos % (Auto) (0.8-7.0) Baso % (Auto) (0.1-1.2) % Neut # (Auto) (1.78-5.38) K/mm3 Lymph # (Auto) (1.32-3.57) K/mm3 [place] # (Auto) (0.30-0.82) K/mm3 Eos # (Auto) (0.04-0.54) K/mm3 Baso # (Auto) (0.01-0.08) K/mm3 Manual Slide Review Abnormal smear POC Glucose 102 77 L (80-115) mg/dL 02/22/19 02/22/19 02/23/19 Range/Units 19:19 20:40 01:16 WBC (4.23-9.07) K/mm3 RBC (4.63-6.08) M/mm3 Hgb (13.7-17.5) gm/L Hct (40.1-51.0) % MCV (79.0-92.2) fl MCH (25.7-32.2) pg MCHC (32.2-35.5) g/dl RDW Std Deviation (35.1-43.9) fL Plt Count (163-337) K/mm3 MPV (9.4-12.3) fl Neut % (Auto) (34.0-67.9) % Lymph % (Auto) (21.8-53.1) % [place] % (Auto) (5.3-12.2) % Eos % (Auto) (0.8-7.0) Baso % (Auto) (0.1-1.2) % Neut # (Auto) (1.78-5.38) K/mm3 Lymph # (Auto) (1.32-3.57) K/mm3 [place] # (Auto) (0.30-0.82) K/mm3 Eos # (Auto) (0.04-0.54) K/mm3 Baso # (Auto) (0.01-0.08) K/mm3 Manual Slide Review POC Glucose 129 H 108 112 (80-115) mg/dL 02/23/19 Range/Units 06:00 WBC 4.45 (4.23-9.07) K/mm3 RBC 3.40 L (4.63-6.08) M/mm3 Hgb 10.2 L (13.7-17.5) gm/L Hct 30.2 L (40.1-51.0) % MCV 88.8 (79.0-92.2) fl MCH 30.0 (25.7-32.2) pg MCHC 33.8 (32.2-35.5) g/dl RDW Std Deviation 38.4 (35.1-43.9) fL Plt Count 263 (163-337) K/mm3 MPV 8.6 L (9.4-12.3) fl Neut % (Auto) 63.4 (34.0-67.9) % Lymph % (Auto) 21.1 L (21.8-53.1) % [place] % (Auto) 12.4 H (5.3-12.2) % Eos % (Auto) 2.5 (0.8-7.0) Baso % (Auto) 0.4 (0.1-1.2) % Neut # (Auto) 2.82 (1.78-5.38) K/mm3 Lymph # (Auto) 0.94 L (1.32-3.57) K/mm3 [place] # (Auto) 0.55 (0.30-0.82) K/mm3 Eos # (Auto) 0.11 (0.04-0.54) K/mm3 Baso # (Auto) 0.02 (0.01-0.08) K/mm3 Manual Slide Review POC Glucose (80-115) mg/dL Med Orders - Current: Current Medications Acetaminophen (Tylenol) 650 mg PO Q4H PRN PRN Reason: Pain (Mild 1-3)/fever Hydrocodone Bitart/Acetaminophen ([place] 325-5 Mg) 1 tab PO Q4H PRN PRN Reason: Pain (moderate 4-6) Dextrose/Water (Dextrose 50% In Water) 50 ml IV ASDIRECTED PRN PRN Reason: Hypoglycemia Last Admin: 02/22/19 18:53 Dose: 25 ml Heparin Sodium (Porcine) (Heparin Sodium) 5,000 units SUBCUT Q8H [facility] Last Admin: 02/23/19 06:26 Dose: 5,000 units Hydromorphone HCl (Dilaudid) 1 mg IVPUSH Q2H PRN PRN Reason: Pain Last Admin: 02/21/19 13:18 Dose: 1 mg Dextrose/Sodium Chloride (Dextrose 5%-Normal Saline) 1,000 mls @ 150 mls/hr IV ASDIRECTED [facility] Last Admin: 02/23/19 01:20 Dose: 150 mls/hr Ondansetron HCl (Zofran) 4 mg IV Q6H PRN PRN Reason: Nausea/Vomiting Phenytoin 25 Mg/1 Ml Susp Ml 237 Ml BottlePtom 0 each PO BID [facility] Last Admin: 02/22/19 20:34 Dose: Not Given Phenobarbital (Phenobarbital) 97.2 mg PO DAILY@1800 [facility] Last Admin: 02/22/19 18:24 Dose: 97.2 mg Sodium Chloride (Saline Flush) 10 ml FLUSH ONETIME PRN PRN Reason: KEEP VEIN OPEN Last Admin: 02/20/19 17:29 Dose: 10 ml Discontinued Medications Dextrose/Water (Dextrose 50% In Water) 50 ml IVPUSH ASDIRECTED PRN PRN Reason: Hypoglycemia Dextrose/Water (Dextrose 50% In Water) Confirm Administered Dose 50 ml .ROUTE .STK-MED ONE Stop: 02/22/19 18:50 Last Admin: 02/22/19 18:59 Dose: Not Given Diatrizoate Meglum/Diatrizoate Sod (Gastrografin 37%) 60 ml PO ONETIME ONE Stop: 02/20/19 16:45 Last Admin: 02/21/19 05:42 Dose: Not Given Diatrizoate Meglum/Diatrizoate Sod (Gastrografin 37%) 60 ml PO ONETIME ONE Stop: 02/20/19 17:12 Last Admin: 02/20/19 17:23 Dose: 60 ml Hydromorphone HCl (Dilaudid) 1 mg IVPUSH ONETIME ONE Stop: 02/20/19 16:05 Last Admin: 02/20/19 16:12 Dose: 1 mg Hydromorphone HCl (Dilaudid) 1 mg IVPUSH ONETIME ONE Stop: 02/20/19 18:18 Last Admin: 02/20/19 18:32 Dose: 1 mg Sodium Chloride (Normal Saline) 1,000 mls @ 999 mls/hr IV ASDIRECTED [facility] Last Admin: 02/20/19 16:11 Dose: 999 mls/hr Sodium Chloride (Normal Saline) 1,000 mls @ 999 mls/hr IV ONETIME ONE Stop: 02/20/19 18:28 Last Admin: 02/20/19 17:29 Dose: 999 mls/hr Sodium Chloride (Normal Saline) 1,000 mls @ 999 mls/hr IV ASDIRECTED [facility] Sodium Chloride (Normal Saline) 1,000 mls @ 150 mls/hr IV ASDIRECTED [facility] Last Admin: 02/22/19 18:12 Dose: 150 mls/hr Magnesium Sulfate 2 gm/ Premix 50 mls @ 25 mls/hr IV ONETIME ONE Stop: 02/22/19 08:46 Last Admin: 02/22/19 07:05 Dose: 25 mls/hr Iohexol (Omnipaque) 75 ml IVPUSH ONETIME ONE Stop: 02/20/19 16:46 Last Admin: 02/21/19 05:42 Dose: Not Given Ondansetron HCl (Zofran) 4 mg IVPUSH ONETIME ONE Stop: 02/20/19 16:06 Last Admin: 02/20/19 16:11 Dose: 4 mg Ondansetron HCl (Zofran) 4 mg IVPUSH ONETIME ONE Stop: 02/20/19 18:18 Last Admin: 02/20/19 18:31 Dose: 4 mg Phenobarbital (Phenobarbital) 97.2 mg PO BEDTIME [facility] Phenobarbital (Phenobarbital) 97.2 mg PO BEDTIME [facility] Last Admin: 02/21/19 17:55 Dose: 97.2 mg - Exam Quality Assessment: DVT Prophylaxis General: Alert, Oriented, Cooperative, No Acute Distress HEENT: Pupils Equal, Pupils Reactive, EOMI, Mucous Membr. Moist/[place] Neck: Supple, Trachea Midline Lungs: Clear to Auscultation, Normal Respiratory Effort Cardiovascular: Regular Rate, Regular Rhythm GI/Abdominal Exam: Normal Bowel Sounds, Soft, Non-Tender, No Distention (Male) Exam: Deferred Back Exam: Normal Inspection, Full Range of Motion Extremities: Normal Inspection, Normal Range of Motion, Non-Tender, No Pedal Edema, Normal Capillary Refill Peripheral Pulses: 2+: Radial (L), Radial (R), Dorsalis Pedis (L), Dorsalis Pedis (R) Skin: Warm, Dry, Intact Neurological: No New Focal Deficit Psy/Mental Status: Alert, Normal Affect, Normal Mood - Problem List & Annotations (1) Abdominal pain SNOMED Code(s): 21378016 Code(s): R10.9 - UNSPECIFIED ABDOMINAL PAIN Status: Resolved Priority: High Current Visit: Yes Qualifiers: Abdominal location: left lower quadrant Qualified Code(s): R10.32 - Left lower quadrant pain (2) Colitis SNOMED Code(s): 30581015 Code(s): K52.9 - NONINFECTIVE GASTROENTERITIS AND COLITIS, UNSPECIFIED Status: Chronic Priority: Medium Current Visit: No (3) Crohn's disease SNOMED Code(s): 72179067 Code(s): K50.90 - CROHN'S DISEASE, UNSPECIFIED, WITHOUT COMPLICATIONS Status: Chronic Priority: Medium Current Visit: No (4) Hemorrhoid SNOMED Code(s): 49394273 Code(s): K64.9 - UNSPECIFIED HEMORRHOIDS Status: Chronic Priority: Low Current Visit: No Onset Date: 05/18/15 Qualifiers: Hemorrhoid type: unspecified Qualified Code(s): K64.9 - Unspecified hemorrhoids (5) History of colectomy SNOMED Code(s): 734053621 Code(s): Z90.49 - ACQUIRED ABSENCE OF OTHER SPECIFIED PARTS OF DIGESTIVE TRACT Status: Chronic Priority: Medium Current Visit: No (6) Ileus SNOMED Code(s): 945503997 Code(s): K56.7 - ILEUS, UNSPECIFIED Status: Resolved Priority: High Current Visit: Yes (7) Acute renal injury SNOMED Code(s): 29233280, 18336102 Code(s): N17.9 - ACUTE KIDNEY FAILURE, UNSPECIFIED Status: Resolved Priority: High Current Visit: Yes (8) History of creation of ostomy SNOMED Code(s): 456721110 Code(s): Z93.9 - ARTIFICIAL OPENING STATUS, UNSPECIFIED Status: Chronic Priority: High Current Visit: Yes - Problem List Review Problem List Initiated/Reviewed/Updated: Yes - My Orders Last 24 Hours: My Active Orders 02/22/19 18:30 PHENobarbital 97.2 mg PO DAILY@1800 02/22/19 Breakfast NPO [Nothing Per Oral Diet] [DIET] 02/23/19 06:00 BASIC METABOLIC PANEL,BMP [CHEM] AM CRP [C-REACTIVE PROTEIN] [CHEM] AM MAGNESIUM [CHEM] AM 02/24/19 05:11 BASIC METABOLIC PANEL,BMP [CHEM] AM CBC WITH AUTO DIFF [HEME] AM CRP [C-REACTIVE PROTEIN] [CHEM] AM MAGNESIUM [CHEM] AM 02/25/19 05:11 BASIC METABOLIC PANEL,BMP [CHEM] AM CBC WITH AUTO DIFF [HEME] AM CRP [C-REACTIVE PROTEIN] [CHEM] AM MAGNESIUM [CHEM] AM - Plan Plan:: I/P: Acute: Ileus vs. early post-operative bowel obstruction -Reports 6 days of worsening abdominal pain, nausea, vomiting -Recently underwent abdominal surgery at [place] on 02/14/19 -Has chronic stoma, producing green liquid -Denies fever or other infectious symptoms -CT abdomen pelvis in ED: * 1. Mildly prominent small bowel loops of fluid. Findings most likely due to ileus given history of recent surgery. * 2. Other incidental findings as noted above. -NG tube placed in ED with LIS -> remove -Dr. Pablo, general surgeon consulted in ED -Recommends continued NG tube and NPO -Requests records from the [facility] -Recommends IV hydration with output monitoring -Requests acute abdomen x-ray series -NPO for now--> advance to full liquids--> advance to soft diet -Repeat Abdominal X-ray shows several loops of slightly prominent small bowel. -Ambulate -WBC 16.27-->5.15-->3.7-->4.45 -CRP 2.8-->2.9 Resolved: S/P Acute renal injury -BUN 75-->60-->37 -Creatinine 2.6-->1.4-->1.0 -GFR 25-->51-->greater than 60 -IV fluids as ordered -2/2 dehydration from poor intake S/P Hyponatremia -Sodium 128-->133-->138 -1L NS given in ND -Fluids as ordered -Asymptomatic -Monitor labs Chronic: prior bowel obstruction GERD hemorrhoids IBD ulcerative colitis colectomy arthritis seizures prior C. difficile infection Plan: Admit to medical floor He is ambulatory so hold off PT/OT for now Other orders as indicated above Routine AM labs DVT prophylaxis: Heparin Home medications as ordered Obtain old records from the [facility] Code status: Full code; PCP: Dr. Young He continues to improve. Hopeful for discharge on 02/24/19 pending continued improvement.
[2019-02-23] MEDS: PHENYTOIN PO SCH ×2 (09:01→20:58)
[2019-02-23] MEDS ORDERED: Dextrose 5%-0.9% NaCl 1,000 ML IV SCH (10:15)
[2019-02-23] MEDS: PHENobarbital 32.4 MG Tab PO SCH (18:25)
[2019-02-24] MEDS: Heparin Sodium 5,000 Units/ML Vial SUBCUT SCH (06:36)
[2019-02-24 08:30] VITALS: BP 102/74
[2019-02-24] MEDS: PHENYTOIN PO SCH (08:46)
--- NOTE | 2019-02-24 10:07 | PCM.PN ---
- General Info Date of Service: 02/24/19 - Patient Data Vitals - Most Recent: Last Vital Signs Temp 98.4 F 02/24/19 08:18 Pulse 76 02/24/19 08:18 Resp 18 02/24/19 08:18 BP 102/74 02/24/19 08:18 Pulse Ox 100 02/24/19 08:18 Weight - Most Recent: 148 lb 8 oz I&O - Last 24 Hours: Intake & Output 02/23/19 02/24/19 02/24/19 22:59 06:59 14:59 Intake Total 2415 700 Output Total 900 1525 Balance 1515 -825 Lab Results Last 24 Hours: Laboratory Results - last 24 hr 02/23/19 02/24/19 02/24/19 Range/Units 06:39 06:50 06:50 WBC 4.89 (4.23-9.07) K/mm3 RBC 3.81 L (4.63-6.08) M/mm3 Hgb 11.6 L (13.7-17.5) gm/L Hct 33.6 L (40.1-51.0) % MCV 88.2 (79.0-92.2) fl MCH 30.4 (25.7-32.2) pg MCHC 34.5 (32.2-35.5) g/dl RDW Std Deviation 38.6 (35.1-43.9) fL Plt Count 292 (163-337) K/mm3 MPV 8.2 L (9.4-12.3) fl Neut % (Auto) 66.4 (34.0-67.9) % Lymph % (Auto) 21.1 L (21.8-53.1) % [place] % (Auto) 8.2 (5.3-12.2) % Eos % (Auto) 3.5 (0.8-7.0) Baso % (Auto) 0.8 (0.1-1.2) % Neut # (Auto) 3.25 (1.78-5.38) K/mm3 Lymph # (Auto) 1.03 L (1.32-3.57) K/mm3 [place] # (Auto) 0.40 (0.30-0.82) K/mm3 Eos # (Auto) 0.17 (0.04-0.54) K/mm3 Baso # (Auto) 0.04 (0.01-0.08) K/mm3 Sodium 139 (136-145) mEq/L Potassium 3.9 (3.5-5.1) mEq/L Chloride 104 (98-107) mEq/L Carbon Dioxide 29 (21-32) mEq/L Anion Gap 9.9 (5-15) BUN 22 H (7-18) mg/dL Creatinine 1.0 (0.7-1.3) mg/dL Est Cr Clr Drug Dosing 71.60 mL/min Estimated GFR (MDRD) > 60 (>60) mL/min BUN/Creatinine Ratio 22.0 H (14-18) Glucose 100 (80-115) mg/dL POC Glucose 113 (80-115) mg/dL Calcium 8.8 (8.5-10.1) mg/dL Magnesium 1.8 (1.8-2.4) mg/dl C-Reactive Protein 2.7 H* (<1.0) mg/dL Med Orders - Current: Current Medications Acetaminophen (Tylenol) 650 mg PO Q4H PRN PRN Reason: Pain (Mild 1-3)/fever Hydrocodone Bitart/Acetaminophen ([place] 325-5 Mg) 1 tab PO Q4H PRN PRN Reason: Pain (moderate 4-6) Dextrose/Water (Dextrose 50% In Water) 50 ml IV ASDIRECTED PRN PRN Reason: Hypoglycemia Last Admin: 02/22/19 18:53 Dose: 25 ml Heparin Sodium (Porcine) (Heparin Sodium) 5,000 units SUBCUT Q8H [facility] Last Admin: 02/24/19 06:36 Dose: 5,000 units Hydromorphone HCl (Dilaudid) 1 mg IVPUSH Q2H PRN PRN Reason: Pain Last Admin: 02/21/19 13:18 Dose: 1 mg Ondansetron HCl (Zofran) 4 mg IV Q6H PRN PRN Reason: Nausea/Vomiting Phenytoin 25 Mg/1 Ml Susp Ml 237 Ml BottlePtom 0 each PO BID [facility] Last Admin: 02/24/19 08:46 Dose: Not Given Phenobarbital (Phenobarbital) 97.2 mg PO DAILY@1800 [facility] Last Admin: 02/23/19 18:25 Dose: 97.2 mg Sodium Chloride (Saline Flush) 10 ml FLUSH ONETIME PRN PRN Reason: KEEP VEIN OPEN Last Admin: 02/20/19 17:29 Dose: 10 ml Discontinued Medications Dextrose/Water (Dextrose 50% In Water) 50 ml IVPUSH ASDIRECTED PRN PRN Reason: Hypoglycemia Dextrose/Water (Dextrose 50% In Water) Confirm Administered Dose 50 ml .ROUTE .STK-MED ONE Stop: 02/22/19 18:50 Last Admin: 02/22/19 18:59 Dose: Not Given Diatrizoate Meglum/Diatrizoate Sod (Gastrografin 37%) 60 ml PO ONETIME ONE Stop: 02/20/19 16:45 Last Admin: 02/21/19 05:42 Dose: Not Given Diatrizoate Meglum/Diatrizoate Sod (Gastrografin 37%) 60 ml PO ONETIME ONE Stop: 02/20/19 17:12 Last Admin: 02/20/19 17:23 Dose: 60 ml Hydromorphone HCl (Dilaudid) 1 mg IVPUSH ONETIME ONE Stop: 02/20/19 16:05 Last Admin: 02/20/19 16:12 Dose: 1 mg Hydromorphone HCl (Dilaudid) 1 mg IVPUSH ONETIME ONE Stop: 02/20/19 18:18 Last Admin: 02/20/19 18:32 Dose: 1 mg Sodium Chloride (Normal Saline) 1,000 mls @ 999 mls/hr IV ASDIRECTED [facility] Last Admin: 02/20/19 16:11 Dose: 999 mls/hr Sodium Chloride (Normal Saline) 1,000 mls @ 999 mls/hr IV ONETIME ONE Stop: 02/20/19 18:28 Last Admin: 02/20/19 17:29 Dose: 999 mls/hr Sodium Chloride (Normal Saline) 1,000 mls @ 999 mls/hr IV ASDIRECTED [facility] Sodium Chloride (Normal Saline) 1,000 mls @ 150 mls/hr IV ASDIRECTED [facility] Last Admin: 02/22/19 18:12 Dose: 150 mls/hr Magnesium Sulfate 2 gm/ Premix 50 mls @ 25 mls/hr IV ONETIME ONE Stop: 02/22/19 08:46 Last Admin: 02/22/19 07:05 Dose: 25 mls/hr Dextrose/Sodium Chloride (Dextrose 5%-Normal Saline) 1,000 mls @ 150 mls/hr IV ASDIRECTED [facility] Last Admin: 02/23/19 07:46 Dose: 150 mls/hr Dextrose/Sodium Chloride (Dextrose 5%-Normal Saline) 1,000 mls @ 75 mls/hr IV ASDIRECTED [facility] Iohexol (Omnipaque) 75 ml IVPUSH ONETIME ONE Stop: 02/20/19 16:46 Last Admin: 02/21/19 05:42 Dose: Not Given Ondansetron HCl (Zofran) 4 mg IVPUSH ONETIME ONE Stop: 02/20/19 16:06 Last Admin: 02/20/19 16:11 Dose: 4 mg Ondansetron HCl (Zofran) 4 mg IVPUSH ONETIME ONE Stop: 02/20/19 18:18 Last Admin: 02/20/19 18:31 Dose: 4 mg Phenobarbital (Phenobarbital) 97.2 mg PO BEDTIME [facility] Phenobarbital (Phenobarbital) 97.2 mg PO BEDTIME [facility] Last Admin: 02/21/19 17:55 Dose: 97.2 mg - Problem List Review Problem List Initiated/Reviewed/Updated: Yes - Assessment Assessment:: He feels great. eating and no pain OK to discharge follow up prn THank you Dr. Castillo - Plan Plan:: I/P: Acute: Ileus vs. early post-operative bowel obstruction -Reports 6 days of worsening abdominal pain, nausea, vomiting -Recently underwent abdominal surgery at [place] on 02/14/19 -Has chronic stoma, producing green liquid -Denies fever or other infectious symptoms -CT abdomen pelvis in ED: * 1. Mildly prominent small bowel loops of fluid. Findings most likely due to ileus given history of recent surgery. * 2. Other incidental findings as noted above. -NG tube placed in ED with LIS -> remove -Dr. Pablo, general surgeon consulted in ED -Recommends continued NG tube and NPO -Requests records from the [facility] -Recommends IV hydration with output monitoring -Requests acute abdomen x-ray series -NPO for now--> advance to full liquids--> advance to soft diet -Repeat Abdominal X-ray shows several loops of slightly prominent small bowel. -Ambulate -WBC 16.27-->5.15-->3.7-->4.45 -CRP 2.8-->2.9 Resolved: S/P Acute renal injury -BUN 75-->60-->37 -Creatinine 2.6-->1.4-->1.0 -GFR 25-->51-->greater than 60 -IV fluids as ordered -2/2 dehydration from poor intake S/P Hyponatremia -Sodium 128-->133-->138 -1L NS given in ND -Fluids as ordered -Asymptomatic -Monitor labs Chronic: prior bowel obstruction GERD hemorrhoids IBD ulcerative colitis colectomy arthritis seizures prior C. difficile infection Plan: Admit to medical floor He is ambulatory so hold off PT/OT for now Other orders as indicated above Routine AM labs DVT prophylaxis: Heparin Home medications as ordered Obtain old records from the [facility] Code status: Full code; PCP: Dr. Young He continues to improve. Hopeful for discharge on 02/24/19 pending continued improvement.
--- NOTE | 2019-02-24 10:23 | PCM.DCSUM1 ---
Discharge Summary - Hospital Course HPI Initial Comments: 64 yo male who presented to our ED on 02/20/19 with left lower quadrant abdominal pain which has been ongoing for the past 6 days. He reportedly underwent an abdominal surgery at [place] and reports he "had his stoma detach, hyperplasia removed, and stoma reattached." Reports his pain has been increasing over the past 6 days and he has been nauseated and been vomiting. He has not been eating or drinking. His stoma is producing green liquid. Denies any back pain, fever, chills. He is accompanied by his . In the ED temperature 98.1 Fahrenheit. Pulse 75. Respirations 18. Blood pressure 117/95. Labs are obtained: WBC is elevated at 16.27. Hemoglobin 17.1. Hematocrit 49.5. He is normocytic. Platelets are elevated at 517,000. Pupils are elevated at 88.3%. Sodium is 128. Potassium 5.1. Chloride 92. Carbon oxide 22. Anion gap is quite high at 19.1. BUN is 75. Creatinine is 2.6. EGFR is 25. Glucose is 167. Calcium 10.3. Bilirubin 0.4. AST 31, ALT 51, alkaline phosphatase 168. Protein is 10.5. Albumin is 4.9. Lipase is 210. He is given a 1 L fluid bolus and started on 150 mils an hour of saline. He is given Dilaudid for pain and [address] of the abdomen and pelvis is obtained and interpreted by Dr. Ocampo as "1. Mildly prominent small bowel loops of fluid. Findings most likely due to ileus given the history of recent surgery. 2. Other incidental findings as noted above." General surgeon, Dr. Pablo, contacted by the ED provider agrees to consultation and was says he was available if surgically necessary. NG tube placed in the ED. He subsequently admitted to the medical floor for management of this ileus. He carries a history of: prior bowel obstruction, GERD, hemorrhoids, IBD, ulcerative colitis, colectomy, arthritis, seizures, prior C. difficile infection. He is a full code. His PCP is Dr. Maddox. 02/22/19, NG tube remains in place with very much decreased output. His ostomy output has greatly increased. Discussed patient with Dr. Pablo. He would like to see the NG tube remain in until tomorrow and then advance diet. He has no other concerns. No nursing concerns. Hopeful to be able to advance diet tomorrow. 02/23/19, Dr. Castillo has seen him as she is taking over for Dr. Pablo. She agrees to removing NG tube and advancing diet. She recommends full liquid diet and advance from there. We will decrease fluids and then stop them if he tolerates full liquids well. He denies any abdominal pain. Hopeful for discharge tomorrow pending continued improvement. 02/24/19, being discharged to self care with recommendations. Diagnosis: Stroke: No - Discharge Data Discharge Date: 02/24/19 Discharge Disposition: Home, Self-Care 01 Condition: Good - Discharge Diagnosis/Problem(s) (1) Abdominal pain SNOMED Code(s): 05031223 ICD Code: R10.9 - UNSPECIFIED ABDOMINAL PAIN Status: Resolved Priority: High Current Visit: Yes Qualifiers: Abdominal location: left lower quadrant Qualified Code(s): R10.32 - Left lower quadrant pain - Patient Summary/Data Consults: Consultations 02/20/19 19:53 Consult to Physician [CONS] Stat 02/21/19 07:19 Consult to Spiritual Care [CONS] Routine - Discharge Plan *PRESCRIPTION DRUG MONITORING PROGRAM REVIEWED*: No *COPY OF PRESCRIPTION DRUG MONITORING REPORT IN PATIENT DANIEL: No Home Medications: Home Meds PHENobarbital [Phenobarbital] 97.2 mg PO BEDTIME 12/08/14 [History] Phenytoin 8 ml PO BID 12/12/15 [History] Referrals: Iraj Young MD [Primary Care Provider] - - Discharge Summary/Plan Comment DC Time >30 min.: No - Patient Data Vitals - Most Recent: Last Vital Signs Temp 98.4 F 02/24/19 08:18 Pulse 76 02/24/19 08:18 Resp 18 02/24/19 08:18 BP 102/74 02/24/19 08:18 Pulse Ox 100 02/24/19 08:18 Weight - Most Recent: 148 lb 8 oz I&O - Last 24 hours: Intake & Output 02/23/19 02/24/19 02/24/19 19:59 03:59 11:59 Intake Total 3515 700 Output Total 900 1525 Balance 2615 -825 Lab Results - Last 24 hrs: Laboratory Results - last 24 hr 0502/24/19 02/24/19 Range/Units 06:39 06:50 06:50 WBC 4.89 (4.23-9.07) K/mm3 RBC 3.81 L (4.63-6.08) M/mm3 Hgb 11.6 L (13.7-17.5) gm/L Hct 33.6 L (40.1-51.0) % MCV 88.2 (79.0-92.2) fl MCH 30.4 (25.7-32.2) pg MCHC 34.5 (32.2-35.5) g/dl RDW Std Deviation 38.6 (35.1-43.9) fL Plt Count 292 (163-337) K/mm3 MPV 8.2 L (9.4-12.3) fl Neut % (Auto) 66.4 (34.0-67.9) % Lymph % (Auto) 21.1 L (21.8-53.1) % [place] % (Auto) 8.2 (5.3-12.2) % Eos % (Auto) 3.5 (0.8-7.0) Baso % (Auto) 0.8 (0.1-1.2) % Neut # (Auto) 3.25 (1.78-5.38) K/mm3 Lymph # (Auto) 1.03 L (1.32-3.57) K/mm3 [place] # (Auto) 0.40 (0.30-0.82) K/mm3 Eos # (Auto) 0.17 (0.04-0.54) K/mm3 Baso # (Auto) 0.04 (0.01-0.08) K/mm3 Sodium 139 (136-145) mEq/L Potassium 3.9 (3.5-5.1) mEq/L Chloride 104 (98-107) mEq/L Carbon Dioxide 29 (21-32) mEq/L Anion Gap 9.9 (5-15) BUN 22 H (7-18) mg/dL Creatinine 1.0 (0.7-1.3) mg/dL Est Cr Clr Drug Dosing 71.60 mL/min Estimated GFR (MDRD) > 60 (>60) mL/min BUN/Creatinine Ratio 22.0 H (14-18) Glucose 100 (80-115) mg/dL POC Glucose 113 (80-115) mg/dL Calcium 8.8 (8.5-10.1) mg/dL Magnesium 1.8 (1.8-2.4) mg/dl C-Reactive Protein 2.7 H* (<1.0) mg/dL Med Orders - Current: Current Medications Acetaminophen (Tylenol) 650 mg PO Q4H PRN PRN Reason: Pain (Mild 1-3)/fever Hydrocodone Bitart/Acetaminophen ([place] 325-5 Mg) 1 tab PO Q4H PRN PRN Reason: Pain (moderate 4-6) Dextrose/Water (Dextrose 50% In Water) 50 ml IV ASDIRECTED PRN PRN Reason: Hypoglycemia Last Admin: 02/22/19 18:53 Dose: 25 ml Heparin Sodium (Porcine) (Heparin Sodium) 5,000 units SUBCUT Q8H [facility] Last Admin: 02/24/19 06:36 Dose: 5,000 units Hydromorphone HCl (Dilaudid) 1 mg IVPUSH Q2H PRN PRN Reason: Pain Last Admin: 02/21/19 13:18 Dose: 1 mg Ondansetron HCl (Zofran) 4 mg IV Q6H PRN PRN Reason: Nausea/Vomiting Phenytoin 25 Mg/1 Ml Susp Ml 237 Ml BottlePtom 0 each PO BID [facility] Last Admin: 02/24/19 08:46 Dose: Not Given Phenobarbital (Phenobarbital) 97.2 mg PO DAILY@1800 [facility] Last Admin: 02/23/19 18:25 Dose: 97.2 mg Sodium Chloride (Saline Flush) 10 ml FLUSH ONETIME PRN PRN Reason: KEEP VEIN OPEN Last Admin: 02/20/19 17:29 Dose: 10 ml Discontinued Medications Dextrose/Water (Dextrose 50% In Water) 50 ml IVPUSH ASDIRECTED PRN PRN Reason: Hypoglycemia Dextrose/Water (Dextrose 50% In Water) Confirm Administered Dose 50 ml .ROUTE .STK-MED ONE Stop: 02/22/19 18:50 Last Admin: 02/22/19 18:59 Dose: Not Given Diatrizoate Meglum/Diatrizoate Sod (Gastrografin 37%) 60 ml PO ONETIME ONE Stop: 02/20/19 16:45 Last Admin: 02/21/19 05:42 Dose: Not Given Diatrizoate Meglum/Diatrizoate Sod (Gastrografin 37%) 60 ml PO ONETIME ONE Stop: 02/20/19 17:12 Last Admin: 02/20/19 17:23 Dose: 60 ml Hydromorphone HCl (Dilaudid) 1 mg IVPUSH ONETIME ONE Stop: 02/20/19 16:05 Last Admin: 02/20/19 16:12 Dose: 1 mg Hydromorphone HCl (Dilaudid) 1 mg IVPUSH ONETIME ONE Stop: 02/20/19 18:18 Last Admin: 02/20/19 18:32 Dose: 1 mg Sodium Chloride (Normal Saline) 1,000 mls @ 999 mls/hr IV ASDIRECTED [facility] Last Admin: 02/20/19 16:11 Dose: 999 mls/hr Sodium Chloride (Normal Saline) 1,000 mls @ 999 mls/hr IV ONETIME ONE Stop: 02/20/19 18:28 Last Admin: 02/20/19 17:29 Dose: 999 mls/hr Sodium Chloride (Normal Saline) 1,000 mls @ 999 mls/hr IV ASDIRECTED [facility] Sodium Chloride (Normal Saline) 1,000 mls @ 150 mls/hr IV ASDIRECTED [facility] Last Admin: 02/22/19 18:12 Dose: 150 mls/hr Magnesium Sulfate 2 gm/ Premix 50 mls @ 25 mls/hr IV ONETIME ONE Stop: 02/22/19 08:46 Last Admin: 02/22/19 07:05 Dose: 25 mls/hr Dextrose/Sodium Chloride (Dextrose 5%-Normal Saline) 1,000 mls @ 150 mls/hr IV ASDIRECTED [facility] Last Admin: 02/23/19 07:46 Dose: 150 mls/hr Dextrose/Sodium Chloride (Dextrose 5%-Normal Saline) 1,000 mls @ 75 mls/hr IV ASDIRECTED [facility] Iohexol (Omnipaque) 75 ml IVPUSH ONETIME ONE Stop: 02/20/19 16:46 Last Admin: 02/21/19 05:42 Dose: Not Given Ondansetron HCl (Zofran) 4 mg IVPUSH ONETIME ONE Stop: 02/20/19 16:06 Last Admin: 02/20/19 16:11 Dose: 4 mg Ondansetron HCl (Zofran) 4 mg IVPUSH ONETIME ONE Stop: 02/20/19 18:18 Last Admin: 02/20/19 18:31 Dose: 4 mg Phenobarbital (Phenobarbital) 97.2 mg PO BEDTIME [facility]YA Phenobarbital (Phenobarbital) 97.2 mg PO BEDTIME [facility] Last Admin: 02/21/19 17:55 Dose: 97.2 mg - Exam Physical Findings Comments:: General: Alert, Oriented, Cooperative, No Acute Distress HEENT: Pupils Equal, Pupils Reactive, EOMI, Mucous Membr. Moist/[place] Neck: Supple, Trachea Midline Lungs: Clear to Auscultation, Normal Respiratory Effort Cardiovascular: Regular Rate, Regular Rhythm GI/Abdominal Exam: Normal Bowel Sounds, Soft, Non-Tender, No Distention (Male) Exam: Deferred Back Exam: Normal Inspection, Full Range of Motion Extremities: Normal Inspection, Normal Range of Motion, Non-Tender, No Pedal Edema, Normal Capillary Refill Peripheral Pulses: 2+: Radial (L), Radial (R), Dorsalis Pedis (L), Dorsalis Pedis (R) Skin: Warm, Dry, Intact Neurological: No New Focal Deficit Psy/Mental Status: Alert, Normal Affect, Normal Mood
== END 2019-02-24 11:19 | disposition home or self-care (01) | DRG 247 ==
LOC: JD.ED 14:53 → JD.MS 19:37
PROVIDERS: ADMIT Family Medicine; ATTEND Family Medicine
PROC: 0D9670Z Drainage of Stomach with Drainage Device, Via Natural or Artificial Opening (ICD-10-PCS; principal; 2019-02-20)
DX: K56.7 Ileus, unspecified (principal); N17.9 Acute kidney failure, unspecified; R56.9 Unspecified convulsions; E87.1 Hypo-osmolality and hyponatremia; E86.0 Dehydration; K21.9 Gastro-esophageal reflux disease without esophagitis; M19.90 Unspecified osteoarthritis, unspecified site; H54.7 Unspecified visual loss; K50.90 Crohn's disease, unspecified, without complications; K64.9 Unspecified hemorrhoids; Z90.49 Acquired absence of other specified parts of digestive tract; Z93.3 Colostomy status; Z79.899 Other long term (current) drug therapy; Z86.718 Personal history of other venous thrombosis and embolism
CPT/HCPCS: 36415; 74018; 74018-26; 74176; 74176-26; 80048; 80053; 82962; 83690; 83735; 84100; 85025; 86140; 96361; 96374; 96375; 96376; 99284; 99285-25; A9270-GY; J1170; J1644; J2405; J3475; J7040; J7042; Q9963

== ENCOUNTER → 2022-12-30 | Day surgery (SDC) | payer BC ==
[2022-12-30] MEDS: Brimonidine 0.2% Ophth Soln 5 ML Bottle EYEBOTH SCH ×2 (15:35→16:12)
[2022-12-30] MEDS: Phenylephrine 2.5% Ophth Soln 2 ML Bot EYEBOTH SCH ×3 (15:40→16:00)
[2022-12-30] MEDS: Tropicamide 1% Ophth Soln 15 ML Bottle EYEBOTH SCH ×3 (15:45→16:04)
== END ==
LOC: JD.SDS 15:30
PROVIDERS: ATTEND Ophthalmology
DX: H26.493 Other secondary cataract, bilateral (principal); H35.3131 Nonexudative age-related macular degeneration, bilateral, early dry stage; H35.363 Drusen (degenerative) of macula, bilateral; H16.223 Keratoconjunctivitis sicca, not specified as Sjogren's, bilateral; H02.831 Dermatochalasis of right upper eyelid; H02.834 Dermatochalasis of left upper eyelid; G40.909 Epilepsy, unspecified, not intractable, without status epilepticus; Z96.1 Presence of intraocular lens; Z98.42 Cataract extraction status, left eye; Z98.41 Cataract extraction status, right eye; Z79.899 Other long term (current) drug therapy
CPT/HCPCS: 66821; A9270

== ENCOUNTER 2024-01-07 11:38 | Emergency (ER) | payer BC, MEDICARE ==
[2024-01-07] MEDS: Sodium Chloride 0.9% 10 ML Syringe FLUSH PRN (12:11)
[2024-01-07] MEDS: HYDROmorphone 0.5 MG/0.5 ML Syringe IVPUSH ONE (12:12)
[2024-01-07] MEDS: Metoclopramide 10 MG/2 ML SDV IVPUSH ONE (12:15)
[2024-01-07] MEDS: Metoclopramide 10 MG/2 ML SDV ONE (12:16)
[2024-01-07] MEDS: HYDROmorphone 0.5 MG/0.5 ML Syringe ONE (12:16)
[2024-01-07] MEDS: Sodium Chloride 0.9% 1,000 ML IV STA (12:17)
[2024-01-07 12:25] LABS: BASOPHILS PERCENT AUTO 0.2 % (0.0-1.0); EOSINOPHILS PERCENT AUTO 0.2 % (0.0-6.0); HEMATOCRIT 41.3 % (42.0-52.0); HEMOGLOBIN 14.1 gm/dl (14.0-18.0); IMMATURE GRAN ABSOLUTE AUTO 0.04 K/mm3 (0.00-0.05); IMMATURE GRAN PERCENT AUTO 0.4 % (0.0-0.4); LYMPHOCYTES ABSOLUTE AUTO 0.5 K/mm3 (1.0-4.8); LYMPHOCYTES PERCENT AUTO 4.7 % (24.0-44.0); MEAN CORPUSCULAR HEMOGLOBIN 30.1 pg (28.0-32.0); MEAN CORPUSCULAR HGB CONC 34.1 g/dl (32.0-36.0); MEAN CORPUSCULAR VOLUME 88.1 fl (83.0-99.0); MEAN PLATELET VOLUME 8.4 fl (9.4-12.4); MONOCYTES ABSOLUTE AUTO 0.3 K/mm3 (0.0-0.8); MONOCYTES PERCENT AUTO 2.5 % (0.0-8.0); NEUTROPHILS ABSOLUTE AUTO 10.1 K/mm3 (1.8-7.7); PLATELET COUNT,PLT 262 K/mm3 (150-400); RED BLOOD CELL COUNT 4.69 M/mm3 (4.52-5.90); WHITE BLOOD CELL COUNT,WBC 11.01 K/mm3 (3.9-11.3)
[2024-01-07] MEDS: diphenhydrAMINE 50 MG/ML SDV IVPUSH ONE (12:34)
[2024-01-07 12:49] LABS: SLIDE REVIEW ABNORMAL SMEAR
[2024-01-07 12:53] LABS: A/G RATIO 1.2 (1-2); ALANINE AMINOTRANSFERASE,ALT 26 U/L (16-63); ALBUMIN 4.4 g/dl (3.4-5.0); ALKALINE PHOSPHATASE 93 U/L (46-116); ANION GAP 15.6 (5-15); ASPARTATE AMNIOTRANSFERASE,AST 18 U/L (15-37); BILIRUBIN TOTAL 0.3 mg/dL (0.2-1.0); BLOOD UREA NITROGEN,BUN 24 mg/dL (7-18); BUN/CREATININE RATIO 21.8 (14-18); C-REACTIVE PROTEIN 0.48 mg/dL (<0.30); CALCIUM 9.1 mg/dL (8.5-10.1); CARBON DIOXIDE,CO2 25 mEq/L (21-32); CHLORIDE,CL 104 mEq/L (98-107); CREATININE 1.1 mg/dL (0.7-1.3); ESTIMATED GFR 74 mL/min (>60); GLUCOSE RANDOM 128 mg/dL (70-99); LIPASE 41 U/L (16-77); POTASSIUM,K 4.6 mEq/L (3.5-5.1); PROTEIN TOTAL,TP 8.2 g/dl (6.4-8.2); SODIUM,NA 140 mEq/L (136-145)
[2024-01-07] MEDS: Iopamidol 612 MG/ML 100 ML Bottle IVPUSH ONE (13:07)
[2024-01-07 14:05] LABS: APPEARANCE,URINE CLEAR (Clear); BILIRUBIN,URINE NEGATIVE (Negative); COLOR,URINE YELLOW (Yellow); GLUCOSE,URINE NEGATIVE (Negative); KETONES,URINE 1+ (Negative); LEUKOCYTE ESTERASE,URINE NEGATIVE (Negative); NITRITE,URINE NEGATIVE (Negative); OCCULT BLOOD,URINE 3+ (Negative); PROTEIN,URINE 1+ (Negative); UROBILINOGEN,URINE 0.2 (0.2-1.0)
[2024-01-07 14:19] LABS: BACTERIA,URINE FEW /hpf (FEW); MUCUS,URINE FEW /hpf (FEW); RBC,URINE 50-75 /hpf (0-5); SQUAMOUS EPITHELIAL CELLS,UR 0-5 /hpf (0-5); WBC,URINE 0-5 /hpf (0-5)
[2024-01-07] MEDS: Ketorolac 30 MG/ML SDV IVPUSH ONE (15:58)
[2024-01-07] MEDS: Tamsulosin 0.4 MG Cap.ER PO ONE (16:00)
[2024-01-07 16:04] VITALS: BP 135/67; PULSE 64
== END 2024-01-07 16:13 | disposition home or self-care (01) ==
LOC: JD.ED 11:38
DX: N13.2 Hydronephrosis with renal and ureteral calculous obstruction (principal); Z79.899 Other long term (current) drug therapy; Z86.16 Personal history of COVID-19; Z86.19 Personal history of other infectious and parasitic diseases
CPT/HCPCS: 36415; 74177; 80053; 81001; 83690; 85025; 86140; 96361; 96374; 96375; 99284; A9270; J1170; J1200; J1885; J2765; J3490; J7030; Q9967

== ENCOUNTER 2024-12-17 13:19 | Emergency (ER) | payer BC | END 2024-12-17 16:45 | disposition left against medical advice (07) | LOC: JD.ED 13:19 | DX: Z53.21 Procedure and treatment not carried out due to patient leaving prior to being seen by health care provider (principal) ==